=== PATIENT | female | born 1955 | race American Indian/Alaskan Native ===

== ENCOUNTER 2017-10-25 07:39 | Inpatient (IN) | payer MEDICARE ==
[2017-10-25 08:29] LABS: Mean Corpuscular HGB Conc 29 % (30-34); Mean Corpuscular Volume 79 fl (79-97); Platelet Count 335 K/mm3 (140-440); Red Blood Count 3.75 M/mm3 (3.65-5.03)
[2017-10-25 08:32] LABS: Hematocrit 29.6 % (30.3-42.9); Hemoglobin 8.5 gm/dl (10.1-14.3); Mean Corpuscular Hemoglobin 23 pg (28-32); Red Cell Distribution Width 26.1 % (13.2-15.2)
[2017-10-25 08:39] LABS: BUN/Creatinine Ratio 40; Blood Urea Nitrogen 16 mg/dL (7-17); Calcium 8.9 mg/dL (8.4-10.2); Hemolysis Index 1
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
[2017-10-25 09:10] LABS: Anisocytosis 3+; Basophils % (Manual) 0 % (0.0-1.8); Eosinophils % (Manual) 0 % (0.0-4.3); Hypochromasia 1+; Poikilocytosis 2+; Total Cells Counted 100
[2017-10-25 09:11] LABS: Large Platelets Few; Ovalocytes 1+; Platelet Estimate Cons; Stomatocytes 1+
[2017-10-25] MEDS ORDERED: BOOSTRIX IM ONE (09:47)
[2017-10-25] MEDS ORDERED: SUBLIMAZE IV ONE (09:47)
[2017-10-25] MEDS ORDERED: LASIX IV ONE (09:47)
[2017-10-25] MEDS ORDERED: ANCEF/NS 1 GM/50 ML 1 GM/50 ML BAG IV ONE (09:47)
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
[2017-10-25 10:26] LABS: INR 1.04 (0.87-1.13)
[2017-10-25 10:27] LABS: Partial Thromboplastin Time 30.6 Sec. (24.2-36.6)
[2017-10-25] MEDS ORDERED: MAGNESIUM SULFATE 2GM/50ML 2 GM/50 ML BAG IV ONE (10:57)
[2017-10-25] MEDS ORDERED: GEODON IM ONE ×2 (11:05→11:09)
[2017-10-25] MEDS ORDERED: MAGNESIUM SULFATE 1 GM in NACL 0.9% 50 ML IV ONE (11:30)
[2017-10-25] MEDS: HALDOL IM PRN ×2 (11:44→17:50)
[2017-10-25] MEDS: ATIVAN IM PRN ×2 (11:44→15:51)
[2017-10-25] MEDS ORDERED: MAGNESIUM SULFATE 2 GM in NACL 0.9% 50 ML IV ONE (12:00)
[2017-10-25] MEDS ORDERED: NACL 0.9% IR ONE (12:02)
[2017-10-25 13:11] LABS: Bilirubin,Urine NEG (Negative); Blood,Urine NEG (Negative); Color,Urine Colorless (Yellow); Hyaline Casts,Urine 1 /LPF; Mucus,Urine FEW /HPF; Protein,Urine <15 mg/dL mg/dL (Negative); Urobilinogen,Urine < 2.0 mg/dL (<2.0)
[2017-10-25 13:18] LABS: RBC,Urine < 1.0 /HPF (0.0-6.0); WBC,Urine < 1.0 /HPF (0.0-6.0)
[2017-10-25 13:27] LABS: Amphetamine Screen,Urine PRESUMPTIVE NEGATIVE; Benzodiazepines Screen,Urine PRESUMPTIVE NEGATIVE; Cannabinoid Screen,Urine PRESUMPTIVE NEGATIVE; Cocaine Screen,Urine PRESUMPTIVE NEGATIVE; Methadone Screen,Urine PRESUMPTIVE NEGATIVE; Opiate Screen,Urine PRESUMPTIVE NEGATIVE
--- NOTE | 2017-10-25 14:09 | Cat Scan Report ---
FINAL REPORT EXAM: CT HEAD/BRAIN WO CON HISTORY: ams TECHNIQUE: CT of the head was performed. No intravenous contrast was administered. PRIORS: None. FINDINGS: There is mild ischemic change in the white matter. There is no evidence of intracranial hemorrhage. There is no edema, mass effect or midline shift. There are no abnormal extra-axial fluid collections. The ventricles are appropriate for brain volume. There is no skull fracture seen. The visualized aspects of the sinuses are clear. IMPRESSION: There is no acute intracranial abnormality identified.
--- NOTE | 2017-10-25 14:15 | Cat Scan Report ---
FINAL REPORT EXAM: CT ANGIO CHEST HISTORY: dyspnea TECHNIQUE: CT angiography of the chest was performed. 100 cc Omnipaque 350 IV was administered. Axial images and coronal and sagittal reformatted images were obtained. Rotational MIPS reformatted images also obtained. PRIORS: None. FINDINGS: There is a large mass in the right upper lobe measuring 4.5 x 4.3 cm. This is very concerning for malignancy. There is some adjacent pleural thickening. There are additional pulmonary nodules bilaterally. The largest is left upper lobe measuring 11 mm. These are likely metastatic nodules. There is no aortic dissection seen. There are no filling defects seen within the pulmonary arterial circulation to suggest pulmonary embolism. There are coronary artery atherosclerotic calcifications. There is a small pericardial effusion. There is no significant mediastinal or hilar mass seen. There is trace right pleural fluid. There is generalized edema. IMPRESSION: There is a 4.5 x 4.3 cm right upper lobe mass which is consistent with malignancy. Multiple small bilateral pulmonary nodules also seen which likely represent metastatic disease. Small pericardial effusion. Trace right pleural effusion. There is no pulmonary embolism or aortic dissection seen. Generalized edema.
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
[2017-10-25] MEDS ORDERED: MORPHINE IV PRN (17:00)
[2017-10-25] MEDS ORDERED: TYLENOL PO PRN (17:00)
[2017-10-25] MEDS ORDERED: SODIUM CHLORIDE FLUSH SYRINGE 10 ML IV PRN (17:00)
[2017-10-25] MEDS ORDERED: PROVENTIL IH PRN (17:00)
[2017-10-25] MEDS ORDERED: ZOFRAN IV PRN (17:00)
[2017-10-25] MEDS: ZITHROMAX 500 MG in NACL 0.9% 250ML 250 ML IV SCH (18:23)
[2017-10-26] MEDS: LOPRESSOR PO SCH ×3 (00:11→22:29)
[2017-10-26] MEDS: SODIUM CHLORIDE FLUSH SYRINGE 10 ML IV SCH ×3 (00:29→22:28)
[2017-10-26] MEDS: ROCEPHIN/NS 1 GM/50 ML 1 GM/50 ML BAG IV SCH ×2 (00:29→17:59)
[2017-10-26] MEDS: HALDOL IM PRN (01:10)
[2017-10-26] MEDS: K-DUR PO SCH (11:15)
[2017-10-26] MEDS: BABY ASPIRIN PO SCH (11:15)
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
[2017-10-26 13:38] LABS: Hematocrit 26.8 % (30.3-42.9); Hemoglobin 7.9 gm/dl (10.1-14.3)
[2017-10-26 13:56] LABS: BUN/Creatinine Ratio 45; Blood Urea Nitrogen 18 mg/dL (7-17); Calcium 8.8 mg/dL (8.4-10.2); Hemolysis Index 1
--- NOTE | 2017-10-26 17:55 | Magnetic Resonance Report ---
FINAL REPORT EXAM: MR BRAIN WO CON HISTORY: metastatic disease Chest CT reveals right upper lobe mass and pulmonary nodules TECHNIQUE: Multiplanar multisequence brain MR imaging without IV contrast. PRIORS: Chest CT 10/25/2017 FINDINGS: The included air filled sinuses contain no acute fluid level. Foci of hyperintensity in the cerebral white matter, while nonspecific, are present and usually attributed to chronic ischemic gliosis. It can occur secondary to the normal aging process, hypertension, vasculitis, migraine related changes, or arterial sclerotic vascular disease. The differential includes any cause of gliosis as well as demyelination in the appropriate clinical setting. There is ventricular and sulcal prominence compatible with global symmetric cerebrocortical atrophy. The brain is without mass, mass effect, hemorrhage, or acute infarct. There are no areas of brain restricted diffusion to suggest an acute ischemic infarct. There is no midline shift or brain edema. Lack of IV contrast limits the examination for metastatic evaluation. IMPRESSION: No acute CVA or brain mass Lack of IV contrast limits the examination for evaluation of metastatic foci. Consider followup with IV contrast in the appropriate clinical setting
[2017-10-26] MEDS: PERCOCET 5/325 PO PRN (21:10)
[2017-10-26] MEDS: PROTONIX IV SCH (22:29)
[2017-10-26] MEDS: ZITHROMAX 500 MG in NACL 0.9% 250ML 250 ML IV SCH (22:46)
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
[2017-10-27] MEDS: PERCOCET 5/325 PO PRN ×2 (03:33→21:45)
--- NOTE | 2017-10-27 07:43 | Cat Scan Report ---
FINAL REPORT EXAM: CT ABDOMEN PELVIS WO CON HISTORY: metastatic disease TECHNIQUE: CT examination of the ABDOMEN without IV contrast CT examination of the PELVIS without IV contrast PRIORS: Chest CT 10/25/2017 FINDINGS: Posterior layering right pleural effusion is now large. New large left pleural effusion. Adjacent lower lobe consolidation may reflect compressive atelectasis and/or pneumonia bilaterally. Slight pericardial effusion unchanged. Lung nodules not visible in the included portion of both lung bases. Degenerative change in the regional skeleton. No evidence of acute fracture or focal osseous lesion. No vertebral compression. New fat stranding throughout the abdominal wall and mesentery suggestive of edema related to anasarca. New slight abdominal and pelvic ascites. Normal noncontrast appearance of the liver, gallbladder, adrenals, pancreas, and spleen. Aortobifemoral graft in place. Nonspecific heterogeneous soft tissue density mass in the right inguinal fossa may be hematoma, reactive adenopathy, or neoplasm. It is noted adjacent to the distal tip of the right femoral artery graft. Normal caliber IVC. Severe atherosclerotic calcification in the [place] aorta and its branches. Nonspecific multifocal areas of cortical hypoenhancement in each kidney. This may reflect nonspecific under perfusion. Differential includes multiple areas of ischemia, infarct, edema, infection, or inflammation. No visible renal calculus or hydronephrosis. Bilaterally symmetric renal excretion. Both ureters obscured by adjacent anatomy and mesenteric edema. No retroperitoneal adenopathy or mesenteric mass. Normal-appearing stomach and duodenum. Nonspecific scattered slight small bowel distention in the abdomen and pelvis with prominent gas and fluid levels may reflect paralytic ileus. No definite obstructive pattern. Moderate pelvic ascites. Ascites and mesenteric edema, as well as lack of oral contrast, limits intestinal evaluation. No visible rectal or sigmoid abnormality. No evidence of free air. Nonspecific mural thickening is diffuse throughout the ascending colon. Normal-appearing terminal ileum. Appendix not visualized. IMPRESSION: Large bilateral pleural effusions with adjacent lower lobe atelectasis and/or pneumonia. Prior exam only showed trace right pleural effusion Slight pericardial effusion is unchanged. Lung nodules visible on comparison exam not included in this field of view New fat stranding throughout the abdominal wall and mesentery suggestive of edema related anasarca New abdominal and pelvic ascites Aortobifemoral graft in place. Right inguinal mass adjacent to the right femoral anastomosis may be a hematoma in the right inguinal fossa. Differential includes reactive adenopathy, neoplasm, or metastasis Nonspecific multifocal areas of cortical hypoenhancement in each kidney may be related to nonspecific under perfusion with IV contrast. Differential includes multiple areas of ischemia, infarct, edema, infection, or inflammation Scattered slight small bowel distention in the abdomen and pelvis, with prominent gas and fluid levels, may reflect paralytic ileus Diffuse mural thickening in the ascending colon may be from edema, inflammation, infection, ischemia, or inflammatory bowel disease. Neoplastic infiltration considered less likely given long length of involvement
[2017-10-27 08:35] LABS: Mean Corpuscular HGB Conc 28 % (30-34); Mean Corpuscular Volume 82 fl (79-97); Platelet Count 318 K/mm3 (140-440); Red Blood Count 3.29 M/mm3 (3.65-5.03)
[2017-10-27 08:48] LABS: Hemoglobin 7.5 gm/dl (10.1-14.3); Mean Corpuscular Hemoglobin 23 pg (28-32); Red Cell Distribution Width 26.5 % (13.2-15.2)
[2017-10-27 08:57] LABS: BUN/Creatinine Ratio 38; Blood Urea Nitrogen 23 mg/dL (7-17); Calcium 8.8 mg/dL (8.4-10.2); Hemolysis Index 15
--- NOTE | 2017-10-27 09:53 | Consultation ---
History of Present Illness Consult date: 10/27/17 Requesting physician: AMADOR VELASQUEZ Reason for consult: lung mass History of present illness: 61 y/o female with right upper lobe lung mass. Consulted by [facility]MS for possible biopsy. Patient has known about this mass since Apr of this year. It has been biopsied and she was to undergo chemo today. She is [place] patient and the biopsy was performed at [facility] [place]. Patient admitted with confusion which appears to be better. Past History Past Medical History: cancer, COPD, heart failure, hypertension Past Surgical History: Other (Port placement) Social history: smoking Family history: hypertension Medications and Allergies Allergies Allergy/AdvReac Type Severity Reaction Status Date / Time No Known Allergies Allergy Verified 10/18/17 21:48 Home Medications Medication Instructions Recorded Confirmed Last Taken Type ALBUTEROL NEB's [Proventil 0.083% 2.5 mg IH Q4HRT PRN #30 nebu 10/22/17 Unknown Rx NEBS] Aspirin [Aspirin BABY CHEW TAB] 81 mg PO QDAY #30 tab.chew 10/22/17 10/25/17 Unknown Rx AtorvaSTATin [Lipitor] 40 mg PO QHS #30 tablet 10/22/17 10/25/17 Unknown Rx Furosemide [Lasix] 20 mg PO QDAY #30 tablet 10/22/17 10/25/17 Unknown Rx Levofloxacin [Levaquin TAB] 750 mg PO DAILY #4 tablet 10/22/17 10/25/17 Unknown Rx Metoprolol [Lopressor TAB] 25 mg PO BID #60 tablet 10/22/17 10/25/17 Unknown Rx Potassium Chloride [K-Dur] 5 meq PO QDAY #14 tablet 10/22/17 10/25/17 Unknown Rx oxyCODONE /ACETAMINOPHEN [Percocet 2 tab PO Q6H PRN #30 tablet 10/22/17 Unknown Rx 5/325 mg] Active Meds: Active Medications Acetaminophen (Tylenol) 650 mg PO Q4H PRN PRN Reason: Pain MILD(1-3)/Fever >100.5/OLMOS Albuterol (Proventil) 2.5 mg IH Q4HRT PRN PRN Reason: Shortness Of Breath Last Admin: 10/25/17 21:34 Dose: 2.5 mg Aspirin (Baby Aspirin) 81 mg PO QDAY DONALD Last Admin: 10/26/17 11:15 Dose: Not Given Atorvastatin Calcium (Lipitor) 40 mg PO QHS [facility] Last Admin: 10/26/17 22:29 Dose: 40 mg Haloperidol Lactate (Haldol) 5 mg IM Q6HR PRN PRN Reason: Agitation Last Admin: 10/26/17 01:10 Dose: 5 mg Azithromycin 500 mg/ Sodium (Chloride) 250 mls @ 250 mls/hr IV Q24HR [facility]; Protocol Last Admin: 10/26/17 22:46 Dose: 250 mls/hr Ceftriaxone Sodium (Rocephin/Ns 1 Gm/50 Ml) 1 gm in 50 mls @ 100 mls/hr IV Q24HR [facility]; Protocol Last Admin: 10/26/17 17:59 Dose: 100 mls/hr Lorazepam (Ativan) 2 mg IM Q4HR PRN PRN Reason: Agitation Last Admin: 10/25/17 15:51 Dose: 2 mg Metoprolol Tartrate (Lopressor) 25 mg PO BID [facility] Last Admin: 10/26/17 22:29 Dose: 25 mg Morphine Sulfate (Morphine) 2 mg IV Q4H PRN PRN Reason: Pain, Moderate (4-6) Ondansetron HCl (Zofran) 4 mg IV Q8H PRN PRN Reason: Nausea And Vomiting Oxycodone/Acetaminophen (Percocet 5/325) 2 tab PO Q6H PRN PRN Reason: Pain, Moderate (4-6) Last Admin: 10/27/17 03:33 Dose: 2 tab Pantoprazole Sodium (Protonix) 40 mg IV QDAY [facility] Last Admin: 10/26/17 22:29 Dose: 40 mg Potassium Chloride (K-Dur) 5 meq PO QDAY [facility] Last Admin: 10/26/17 11:15 Dose: Not Given Sodium Chloride (Sodium Chloride Flush Syringe 10 Ml) 10 ml IV BID [facility] Last Admin: 10/26/17 22:28 Dose: 10 ml Sodium Chloride (Sodium Chloride Flush Syringe 10 Ml) 10 ml IV PRN PRN PRN Reason: LINE FLUSH Review of Systems All systems: negative Physical Examination Vital signs: Vital Signs Temp Pulse Resp BP Pulse Ox 98 F 82 20 132/80 98 10/25/17 07:59 10/25/17 07:59 10/25/17 07:59 10/25/17 07:59 10/25/17 07:59 General appearance: no acute distress, alert Eyes: non-icteric ENT: oropharynx moist Neck: supple Effort: normal Ascultation: Bilateral: diminished breath sounds Percussion: Bilateral: not dull Tactile fremitus: Bilateral: normal Gastrointestinal: soft Results - Laboratory Findings CBC and BMP: 10/27/17 07:05 10/27/17 07:05 ABG POC ABG pH 7.385 (7.35-7.45) 10/25/17 12:40 POC ABG pCO2 87.9 (35-45) H 10/25/17 12:40 POC ABG pO2 186 (80-105) H 10/25/17 12:40 POC ABG HCO3 52.6 10/25/17 12:40 POC ABG Total CO2 > 50 10/25/17 12:40 POC ABG O2 Sat 100 10/25/17 12:40 PT/INR, D-dimer PT 14.1 Sec. (12.2-14.9) 10/25/17 09:52 INR 1.04 (0.87-1.13) 10/25/17 09:52 Abnormal lab findings: Abnormal Labs 10/25/17 10/25/17 10/25/17 08:14 08:14 08:14 WBC 13.4 H RBC Hgb 8.5 L Hct 29.6 L MCH 23 L MCHC 29 L RDW 26.1 H Seg Neuts % (Manual) 94.0 H Lymphocytes % (Manual) 2.0 L Seg Neutrophils # Man 12.6 H Lymphocytes # (Manual) 0.3 L POC ABG pCO2 POC ABG pO2 Sodium Chloride 91.6 L Carbon Dioxide 43 H* BUN Creatinine 0.4 L Glucose 103 H Magnesium 1.50 L NT-Pro-B Natriuret Pep 2932 H Salicylates Acetaminophen 10/25/17 10/25/17 10/25/17 11:16 11:16 12:40 WBC RBC Hgb Hct MCH MCHC RDW Seg Neuts % (Manual) Lymphocytes % (Manual) Seg Neutrophils # Man Lymphocytes # (Manual) POC ABG pCO2 87.9 H POC ABG pO2 186 H Sodium Chloride Carbon Dioxide BUN Creatinine Glucose Magnesium NT-Pro-B Natriuret Pep Salicylates < 0.3 L Acetaminophen < 5.0 L 10/26/17 10/26/17 10/27/17 10:27 10:27 07:05 WBC RBC 3.29 L Hgb 7.9 L 7.5 L Hct 26.8 L 27.0 L MCH 23 L MCHC 28 L RDW 26.5 H Seg Neuts % (Manual) Lymphocytes % (Manual) Seg Neutrophils # Man Lymphocytes # (Manual) POC ABG pCO2 POC ABG pO2 Sodium 147 H Chloride 94.5 L Carbon Dioxide 43 H* BUN 18 H Creatinine 0.4 L Glucose 45 L Magnesium NT-Pro-B Natriuret Pep Salicylates Acetaminophen 10/27/17 07:05 WBC RBC Hgb Hct MCH MCHC RDW Seg Neuts % (Manual) Lymphocytes % (Manual) Seg Neutrophils # Man Lymphocytes # (Manual) POC ABG pCO2 POC ABG pO2 Sodium 148 H Chloride 96.9 L Carbon Dioxide 38 H BUN 23 H Creatinine 0.6 L Glucose Magnesium NT-Pro-B Natriuret Pep Salicylates Acetaminophen - Diagnostic Findings Chest x-ray: image reviewed Assessment and Plan 61 y/o female with RUL lung mass, known CA, type not known to us. 1. Will sign off at this point 2. Suggest obtaining [place] and [facility] records if needed to further process 3. Confusion could be related to CA if mets to brain however head CT is negative. 4. Primary to correct electrolytes. Thank you for this consult
[2017-10-27 10:33] LABS: Basophils % (Manual) 0 % (0.0-1.8); Total Cells Counted 100
[2017-10-27 10:34] LABS: Anisocytosis 3+; Hypochromasia 2+; Ovalocytes 1+; Poikilocytosis 2+; Tear Drop Cells Few
[2017-10-27 10:35] LABS: Large Platelets Few; Platelet Estimate Cons; Stomatocytes Few; Target Cells Rare
[2017-10-27] MEDS: BABY ASPIRIN PO SCH (10:53)
[2017-10-27] MEDS: K-DUR PO SCH (10:53)
[2017-10-27] MEDS: LOPRESSOR PO SCH ×2 (10:53→21:43)
[2017-10-27] MEDS: SODIUM CHLORIDE FLUSH SYRINGE 10 ML IV SCH ×2 (10:54→21:46)
[2017-10-27] MEDS: PROTONIX IV SCH (10:54)
[2017-10-27] MEDS: ZITHROMAX 500 MG in NACL 0.9% 250ML 250 ML IV SCH (10:57)
--- NOTE | 2017-10-27 11:34 | Gastroenterology Progress Note ---
<FELICITA ROBLES - Last Filed: 10/27/17 11:44> Assessment and Plan 1.GI bleed 2.anemia 3.respiratory failure 4.CHF 5.foreign body in foot 6.encephalopathy 7.psychosis 8.lung cancer (stage 3) 9.nicotine dependence -H/H 7.5-trending down -continue to monitor H/H and transfuse as needed -hold blood thinning medications -stool occult positive -no active signs of bleeding -etiology unclear- possibly 2/2 lung CA/chemotherapy vs other -clinically, patient is stable w/o GI complaints -Head CT negative -Abd CT results reviewed- will discuss findings with Dr. Villegas with further recommendations (possible endoscopic evaluation?) to follow -continue PPI and supportive care -will follow Subjective Date of service: 10/27/17 Principal diagnosis: anemia Interval history: Patient w/o distress. Denies abd pain, N/V, or signs of bleeding. Objective - Constitutional Vitals: Temp Pulse Resp BP Pulse Ox 98.1 F 107 H 19 113/64 100 10/26/17 19:44 10/26/17 22:34 10/26/17 22:34 10/26/17 19:44 10/26/17 22:34 General appearance: no acute distress, cachectic - Respiratory Respiratory: bilateral: CTA (anterior) - Cardiovascular Rhythm: regular Heart Sounds: Present: S1 & S2 - Gastrointestinal General gastrointestinal: Present: soft, non-tender, non-distended, normal bowel sounds - Labs CBC & Chem 7: 10/27/17 07:05 10/27/17 07:05 Labs: Laboratory Results - last 24 hr 10/26/17 10/26/17 10/27/17 10:27 10:27 07:05 WBC 10.6 RBC 3.29 L Hgb 7.9 L 7.5 L Hct 26.8 L 27.0 L MCV 82 MCH 23 L MCHC 28 L RDW 26.5 H Plt Count 318 Add Manual Diff Complete Total Counted 100 Seg Neuts % (Manual) 72.0 H Band Neutrophils % 0 Lymphocytes % (Manual) 13.0 L Reactive Lymphs % (Man) 0 Monocytes % (Manual) 14.0 H Eosinophils % (Manual) 1.0 Basophils % (Manual) 0 Metamyelocytes % 0 Myelocytes % 0 Promyelocytes % 0 Blast Cells % 0 Nucleated RBC % Not Reportable Seg Neutrophils # Man 7.6 Band Neutrophils # 0.0 Lymphocytes # (Manual) 1.4 Abs React Lymphs (Man) 0.0 Monocytes # (Manual) 1.5 H Eosinophils # (Manual) 0.1 Basophils # (Manual) 0.0 Metamyelocytes # 0.0 Myelocytes # 0.0 Promyelocytes # 0.0 Blast Cells # 0.0 WBC Morphology Not Reportable Hypersegmented Neuts Not Reportable Hyposegmented Neuts Not Reportable Hypogranular Neuts Not Reportable Smudge Cells Not Reportable Toxic Granulation Not Reportable Toxic Vacuolation Not Reportable Dohle Bodies Not Reportable Pelger-Huet Anomaly Not Reportable Ani Rods Not Reportable Platelet Estimate Cons Clumped Platelets Not Reportable Plt Clumps, EDTA Not Reportable Large Platelets Few Giant Platelets Not Reportable Platelet Satelliting Not Reportable Plt Morphology Comment Not Reportable RBC Morphology Not Reportable Dimorphic RBCs Not Reportable Polychromasia Not Reportable Hypochromasia 2+ Poikilocytosis 2+ Anisocytosis 3+ Microcytosis Not Reportable Macrocytosis Not Reportable Spherocytes Not Reportable Pappenheimer Bodies Not Reportable Sickle Cells Not Reportable Target Cells Rare Tear Drop Cells Few Ovalocytes 1+ Stomatocytes Few Helmet Cells Not Reportable Varela-[place] Bodies Not Reportable [place] Rings Not Reportable [place] Cells Not Reportable Bite Cells Not Reportable Crenated Cell Not Reportable Elliptocytes Few Acanthocytes (Spur) Not Reportable Rouleaux Not Reportable Hemoglobin C Crystals Not Reportable Schistocytes Not Reportable Malaria parasites Not Reportable [place] Bodies Not Reportable Hem Pathologist Commnt No Sodium 147 H Potassium 3.7 Chloride 94.5 L Carbon Dioxide 43 H* Anion Gap 13 BUN 18 H Creatinine 0.4 L Estimated GFR > 60 BUN/Creatinine Ratio 45 Glucose 45 L Calcium 8.8 Ferritin 10/27/17 10/27/17 07:05 07:05 WBC RBC Hgb Hct MCV MCH MCHC RDW Plt Count Add Manual Diff Total Counted Seg Neuts % (Manual) Band Neutrophils % Lymphocytes % (Manual) Reactive Lymphs % (Man) Monocytes % (Manual) Eosinophils % (Manual) Basophils % (Manual) Metamyelocytes % Myelocytes % Promyelocytes % Blast Cells % Nucleated RBC % Seg Neutrophils # Man Band Neutrophils # Lymphocytes # (Manual) Abs React Lymphs (Man) Monocytes # (Manual) Eosinophils # (Manual) Basophils # (Manual) Metamyelocytes # Myelocytes # Promyelocytes # Blast Cells # WBC Morphology Hypersegmented Neuts Hyposegmented Neuts Hypogranular Neuts Smudge Cells Toxic Granulation Toxic Vacuolation Dohle Bodies Pelger-Huet Anomaly Ani Rods Platelet Estimate Clumped Platelets Plt Clumps, EDTA Large Platelets Giant Platelets Platelet Satelliting Plt Morphology Comment RBC Morphology Dimorphic RBCs Polychromasia Hypochromasia Poikilocytosis Anisocytosis Microcytosis Macrocytosis Spherocytes Pappenheimer Bodies Sickle Cells Target Cells Tear Drop Cells Ovalocytes Stomatocytes Helmet Cells Varela-[place] Bodies [place] Rings Jenna Cells Bite Cells Crenated Cell Elliptocytes Acanthocytes (Spur) Rouleaux Hemoglobin C Crystals Schistocytes Malaria parasites Warren Bodies Hem Pathologist Commnt Sodium 148 H Potassium 3.7 Chloride 96.9 L Carbon Dioxide 38 H Anion Gap 17 BUN 23 H Creatinine 0.6 L Estimated GFR > 60 BUN/Creatinine Ratio 38 Glucose 82 Calcium 8.8 Ferritin 38.0 <CORTES VILLEGAS R - Last Filed: 10/27/17 15:53> Assessment and Plan Pt denies complaints. No nuno GI bleed. Wants to go home. CT findings nonspecific as regards colon. Anemia multifactorial and likely related to neoplasm, etc. Uncertain as to contribution of GI blood loss. Rec - empiric PPI - okay to D/C with f/u this week with [facility] (pt states she has appt tomorrow) Will sign off. Discussed with Dr. Rider. Objective - Constitutional Vitals: Temp Pulse Resp BP Pulse Ox 98.1 F 107 H 19 113/64 100 10/26/17 19:44 10/26/17 22:34 10/26/17 22:34 10/26/17 19:44 10/26/17 22:34 - Labs CBC & Chem 7: 10/27/17 07:05 10/27/17 07:05 Labs: Laboratory Results - last 24 hr 10/27/17 10/27/17 10/27/17 07:05 07:05 07:05 WBC 10.6 RBC 3.29 L Hgb 7.5 L Hct 27.0 L MCV 82 MCH 23 L MCHC 28 L RDW 26.5 H Plt Count 318 Add Manual Diff Complete Total Counted 100 Seg Neuts % (Manual) 72.0 H Band Neutrophils % 0 Lymphocytes % (Manual) 13.0 L Reactive Lymphs % (Man) 0 Monocytes % (Manual) 14.0 H Eosinophils % (Manual) 1.0 Basophils % (Manual) 0 Metamyelocytes % 0 Myelocytes % 0 Promyelocytes % 0 Blast Cells % 0 Nucleated RBC % Not Reportable Seg Neutrophils # Man 7.6 Band Neutrophils # 0.0 Lymphocytes # (Manual) 1.4 Abs React Lymphs (Man) 0.0 Monocytes # (Manual) 1.5 H Eosinophils # (Manual) 0.1 Basophils # (Manual) 0.0 Metamyelocytes # 0.0 Myelocytes # 0.0 Promyelocytes # 0.0 Blast Cells # 0.0 WBC Morphology Not Reportable Hypersegmented Neuts Not Reportable Hyposegmented Neuts Not Reportable Hypogranular Neuts Not Reportable Smudge Cells Not Reportable Toxic Granulation Not Reportable Toxic Vacuolation Not Reportable Dohle Bodies Not Reportable Pelger-Huet Anomaly Not Reportable Ani Rods Not Reportable Platelet Estimate Cons Clumped Platelets Not Reportable Plt Clumps, EDTA Not Reportable Large Platelets Few Giant Platelets Not Reportable Platelet Satelliting Not Reportable Plt Morphology Comment Not Reportable RBC Morphology Not Reportable Dimorphic RBCs Not Reportable Polychromasia Not Reportable Hypochromasia 2+ Poikilocytosis 2+ Anisocytosis 3+ Microcytosis Not Reportable Macrocytosis Not Reportable Spherocytes Not Reportable Pappenheimer Bodies Not Reportable Sickle Cells Not Reportable Target Cells Rare Tear Drop Cells Few Ovalocytes 1+ Stomatocytes Few Helmet Cells Not Reportable Varela-Landusky Bodies Not Reportable [place] Rings Not Reportable Jenna Cells Not Reportable Bite Cells Not Reportable Crenated Cell Not Reportable Elliptocytes Few Acanthocytes (Spur) Not Reportable Rouleaux Not Reportable Hemoglobin C Crystals Not Reportable Schistocytes Not Reportable Malaria parasites Not Reportable Warren Bodies Not Reportable Hem Pathologist Commnt No Sodium 148 H Potassium 3.7 Chloride 96.9 L Carbon Dioxide 38 H Anion Gap 17 BUN 23 H Creatinine 0.6 L Estimated GFR > 60 BUN/Creatinine Ratio 38 Glucose 82 Calcium 8.8 Ferritin 38.0
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
[2017-10-27] MEDS: ATIVAN IM PRN (21:44)
[2017-10-27] MEDS: ROCEPHIN/NS 1 GM/50 ML 1 GM/50 ML BAG IV SCH (23:02)
[2017-10-28 06:56] LABS: BUN/Creatinine Ratio 55; Blood Urea Nitrogen 22 mg/dL (7-17); Calcium 8.6 mg/dL (8.4-10.2); Hemolysis Index 5
[2017-10-28 07:09] LABS: Mean Corpuscular HGB Conc 29 % (30-34); Mean Corpuscular Volume 82 fl (79-97); Platelet Count 320 K/mm3 (140-440); Red Blood Count 3.11 M/mm3 (3.65-5.03)
[2017-10-28 07:14] LABS: Hematocrit 25.5 % (30.3-42.9); Hemoglobin 7.3 gm/dl (10.1-14.3); Mean Corpuscular Hemoglobin 23 pg (28-32); Red Cell Distribution Width 25.7 % (13.2-15.2)
--- NOTE | 2017-10-28 09:15 | Query-Infection ---
Dear Date:__10/28/2017 Reinstatement Clerk/CDS:__Sushma/Jennifer Phone#:__[phone] Exercise your independent professional judgment when responding to this query. Questions asked do not imply a particular answer is desired or expected. We greatly appreciate your clarification on this issue. Clinical Documentation States: 61 Year old female was admitted on 10/25/2017 for shortness of breath for the past 3 days with worsening symptoms over the past 1 day. Pt has become increasingly confused and agitated with abnormal behavior. The Hospitalist (Dr. Rider) progress note on 10/27/2017 stated "(1) Respiratory failure with hypoxia likely secondary to pleural effusion * Likely secondary to pleural effusion now resolved. Pleural effusion likely malignant considering lung cancer. (4) Encephalopathy Current Visit: Yes Status: Acute Plan to address problem: CT Head, neuro checks, neuro checks, supportive care. Results pending psychiatry evaluation." Clinical findings show: (please check applicable parameters) WBC (10/25): 13.4 SD (10/25): 128 RR (10/25): 37 Infection, known /suspected, with some of the following indicators; Specify the infection: 3 General parameters [ ] Fever (core temp >38.30C or 100.40F) [ ] Hypothermia (core temp <36C) [X] Heart rate >90 bpm [X] Tachypnea: >20 bpm or pCO2 < 32 mmHg [X] Altered mental status [ ] Significant edema / +ve fluid balance (>20 ml/kg 24 h) [ ] Hyperglycemia (Bl. glucose >110 mg/dl) w/o diabetes Inflammatory parameters [X] Leukocytosis (white blood cell count >12,000/l) [ ] Leukopenia (white blood cell count <4,000/l) [ ] Bandemia (immature WBC > 10%) [ ] Leucocyte Left Shift [ ] Plasma procalcitonin>2 SD above the normal value Hemodynamic and tissue perfusion parameters [ ] Arterial hypotension(SBP <90 mmHg, MAP <70 mmHg,or a SBP drop >40 mmHg in adults) [ ] Hyperlactatemia (>3 mmol/l) [ ] Anion Gap (> 11mEG/l) [ ] Decreased capillary refill or mottling Organ dysfunction parameters [ ] Arterial hypoxemia (PaO2/FIO2 <300) [ ] Creatinine increase =0.5 mg/dl [ ] Acute oliguria (urine output <0.5 ml | kg |h or 45 mM/l for at least 2 hrs) [ ] Coagulation abnormalities (INR >1.5 or activated partial thromboplastin time >60 s) [ ] Ileus (absent suzanne wel sounds) [ ] Thrombocytopenia (platelet count <100,000/l) [ ] Hyperbilirubinemia (plasma total bilirubin >4 mg/dl) According to the clinical indications above, can Bacteremia be further specified? If so, please indicate below and in your Progress Notes and/ or Discharge Summary. Indicate if the condition was present on admission. PHYSICIAN RESPONSE: [ ] Sepsis [ ] Severe Sepsis [ ] Septic Shock [ ] Septicemia [ ] Sepsis now resolved [ x] SIRS due to non-infectious cause with organ dysfunction [ ] SIRS due to non-infectious cause without organ dysfunction [ ] Other: [ ] Comment/Explanation: Present on Admission: x ] Yes (Y) [ ] Clinically undeterminable (W) [ ] No ( N) [ ] Ruled Out Please also document response in your Progress Notes and/or Discharge Summary and indicate if the condition was present on admission Notes: SIRS/ SIRS WITH ORGAN DYSFUNCTION Systemic inflammatory response syndrome (SIRS) generally refers to the systemic response to trauma/mejias or other insult such as Acute Myocardial Infarction, Acute Pancreatitis, and Major Surgery with symptoms including fever, tachycardia , tachypnea, and leukocytosis (1). BACTEREMIA Presence of viable bacteria in the circulating blood (2). This term is reserved for patients that do not manifest above SIRS response. SEPTICEMIA Generally refers to a systemic disease associated with the presence of pathological microorganisms or toxins in the blood, which can include bacteria, viruses, fungi or other organisms (1). SEPSIS Generally refers to SIRS due infection (1). SEVERE SEPSIS Generally refers to sepsis associated with acute organ dysfunction (1). SEPTIC SHOCK Generally refers to circulatory failure associated with severe sepsis (2), and defined as hypotension or hypoperfusion despite adequate fluid resuscitation (1 hour) (3). REFERENCES: 1. [employer]/Society of Critical Care Medicine Consensus Conference. Definitions for sepsis and organ failure and guidelines for the use of innovative therapies in sepsis. Critical Care Med 1992;20:864 - 74. 2. Hugh kilpatrick MM, Alan MP, Jose DEL CID, Cirilo E, Clive D, Hawk D, Octaviano J, [place] SM , Price JL, Aliya G; International Sepsis Definitions Conference. 2001 SCCM/ESICM/ACCP/ATS/SIS International Sepsis Definitions Conference. Intensive Care Med. 2002 Apr;29(4):530-8. Epub 2002Jun 23. Review. PubMed PMID:[id number] 3. ICD-9-CM Official Guidelines for Coding and Reporting 4. Medscape Drugs, Diseases and Procedures references 5. Harrisjose antonio Textbook of Internal Medicine. 18th Edition MTDD
[2017-10-28] MEDS ORDERED: PROTONIX IV SCH (10:00)
[2017-10-28] MEDS: K-DUR PO SCH (10:35)
[2017-10-28] MEDS: LOPRESSOR PO SCH ×2 (10:35→21:04)
[2017-10-28] MEDS: SODIUM CHLORIDE FLUSH SYRINGE 10 ML IV SCH ×2 (10:36→21:05)
[2017-10-28] MEDS: ZITHROMAX 500 MG in NACL 0.9% 250ML 250 ML IV SCH (11:00)
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
[2017-10-28] MEDS ORDERED: NACL 0.9% 500 ML 500 ML IV NR ×2 (11:30→21:00)
--- NOTE | 2017-10-28 11:38 | Ultrasound Report ---
ULTRASOUND CHEST INDICATION: Pleural effusion, for thoracentesis. COMPARISON: 10/25/2017 chest CTA. FINDINGS: Sonographic survey of right lower chest suggests approximately 111 cc fluid, felt inadequate for safe drainage. CONCLUSION: Inadequate right pleural fluid for safe drainage. Thoracentesis hence not performed. I phoned the above results to Dr. Rider. Thank you for the opportunity to participate in this patient's care.
[2017-10-28] MEDS: ROCEPHIN/NS 1 GM/50 ML 1 GM/50 ML BAG IV SCH (13:55)
--- NOTE | 2017-10-28 15:24 | Progress Note ---
Subjective - Reason for Consult Consult date: 10/28/17 Reason for consult: Psych - Chief Complaint Chief complaint: "I never tried to harm myself" 61 year old female with HTN, COPD, Lung Cancer, Systolic CHF, Dementia, Nicotine Dependence presents to ED for evaluation. Psychiatry was consulted due to psychosis. Patient denies any past psychiatric history. Today the patient is calm and cooperative during the assessment. She is adamant that she didn't try to hurt herself prior to her admission to the hospital. She denies any previous self-injury behavior in the past. She stated that her behavior changed "slightly" when she started taking steroids. She stated that she plan to follow up with her PCP once discharged to discuss her medication regimen. She stated that she is aware and understand what her prognosis maybe ( lung cancer) moving forward. She denies being depressed when asked. She stated that she will talk with her cyber security instructor for spiritual support and therapy. She denies SI/HI's and AVH's. Mental Status Exam - Vital signs Last Vital Signs Temp 98.0 F 10/28/17 11:59 Pulse 108 H 10/28/17 11:59 Resp 20 10/28/17 11:59 BP 105/80 10/28/17 11:59 Pulse Ox 100 10/28/17 11:59 - Exam Narrative exam: MSE: Appearance: calm, cooperative Behavior: regular eye contact Speech: regular rate and tone Mood: okay Affect: congruent to mood Thought Process: linear Thought Content: denies SI/HI's and AVH's Motor Activity: sitting up in bed Cognition: A/O x 3 Insight: appropriate Judgment: appropriate Assessment and Plan Impression: No overt psychosis with this patient. Today the patient is calm and cooperative during the assessment. The patient is no threat to self. Recommendation/Plan: Rescind 1013. The patient can follow up with her PCP for medication reconciliation. The patient stated that she will speak with her cyber security instructor for spiritual support and therapy.
[2017-10-28] MEDS ORDERED: ROCEPHIN/NS 1 GM/50 ML 1 GM/50 ML BAG IV SCH (23:00)
[2017-10-28] MEDS ORDERED: NACL 0.9% 500 ML 500 ML IV ONE (23:39)
[2017-10-29] MEDS ORDERED: PROTONIX PO SCH (10:00)
[2017-10-29] MEDS: LOPRESSOR PO SCH (10:20)
[2017-10-29] MEDS: K-DUR PO SCH (10:20)
[2017-10-29 10:38] LABS: Mean Corpuscular HGB Conc 29 % (30-34); Mean Corpuscular Volume 86 fl (79-97); Platelet Count 316 K/mm3 (140-440); Red Blood Count 3.65 M/mm3 (3.65-5.03)
[2017-10-29 10:43] LABS: Hematocrit 31.4 % (30.3-42.9); Mean Corpuscular Hemoglobin 25 pg (28-32); Red Cell Distribution Width 25.1 % (13.2-15.2)
[2017-10-29 10:56] LABS: BUN/Creatinine Ratio 60; Blood Urea Nitrogen 18 mg/dL (7-17); Calcium 8.5 mg/dL (8.4-10.2); Hemolysis Index 51
[2017-10-29] MEDS: ZITHROMAX 500 MG in NACL 0.9% 250ML 250 ML IV SCH (15:35)
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
[2017-10-29 17:24] VITALS: BP 126/71
[2017-10-30] MEDS ORDERED: ZITHROMAX PO SCH (10:00)
== END 2017-10-29 20:25 | disposition home or self-care (01) | DRG 377 ==
LOC: ED 07:39 → 4A 17:00
PROVIDERS: ADMIT Internal Medicine; ATTEND Internal Medicine
PROC: 5A09457 Assistance with Respiratory Ventilation, 24-96 Consecutive Hours, Continuous Positive Airway Pressure (ICD-10-PCS; 2017-10-25)
PROC: 5A09357 Assistance with Respiratory Ventilation, Less than 24 Consecutive Hours, Continuous Positive Airway Pressure (ICD-10-PCS; 2017-10-28)
PROC: 4A033R1 Measurement of Arterial Saturation, Peripheral, Percutaneous Approach (ICD-10-PCS; 2017-10-28)
PROC: 30233N1 Transfusion of Nonautologous Red Blood Cells into Peripheral Vein, Percutaneous Approach (ICD-10-PCS; principal; 2017-10-29)
DX: K92.2 Gastrointestinal hemorrhage, unspecified (principal); J96.01 Acute respiratory failure with hypoxia; I50.23 Acute on chronic systolic (congestive) heart failure; R65.11 Systemic inflammatory response syndrome (SIRS) of non-infectious origin with acute organ dysfunction; J96.02 Acute respiratory failure with hypercapnia; G93.41 Metabolic encephalopathy; J18.1 Lobar pneumonia, unspecified organism; J44.0 Chronic obstructive pulmonary disease with (acute) lower respiratory infection; E87.2 Acidosis; F17.213 Nicotine dependence, cigarettes, with withdrawal; J91.0 Malignant pleural effusion; C34.90 Malignant neoplasm of unspecified part of unspecified bronchus or lung; I11.0 Hypertensive heart disease with heart failure; F03.90 Unspecified dementia, unspecified severity, without behavioral disturbance, psychotic disturbance, mood disturbance, and anxiety; F29 Unspecified psychosis not due to a substance or known physiological condition; E64.9 Sequelae of unspecified nutritional deficiency; Z82.49 Family history of ischemic heart disease and other diseases of the circulatory system; Z79.82 Long term (current) use of aspirin; Z79.899 Other long term (current) drug therapy; S91.342A Puncture wound with foreign body, left foot, initial encounter; X58.XXXA Exposure to other specified factors, initial encounter; Y93.9 Activity, unspecified; Y92.009 Unspecified place in unspecified non-institutional (private) residence as the place of occurrence of the external cause
CPT/HCPCS: 36415; 36600; 70450; 70551; 71045; 71275; 74178; 76604; 80048; 80307; 80320; 81001; 82271; 82550; 82728; 82803; 83735; 83880; 85007; 85014; 85018; 85025; 85027; 85610; 85730; 86850; 86900; 86901; 86920; 87040; 90715; 93005; 93010; 94640; 94660; 94760; 99406; A9270-GY; C9113; G0480; J0456; J0690; J0696; J1630; J1940; J2060; J3010; J3475; J3486; J7040; J7050; P9016; Q9967

== ENCOUNTER 2017-10-30 21:38 | Inpatient (IN) | payer MEDICARE ==
--- NOTE | 2017-10-30 22:30 | Emergency Department Report ---
ED Shortness of Breath HPI - General Chief Complaint: Dyspnea/Respdistress Stated Complaint: SOB Time Seen by Provider: 10/30/17 22:01 Source: patient, EMS Mode of arrival: Stretcher Limitations: No Limitations - History of Present Illness Initial Comments: She is a 61-year-old female that presents emergency room with complaints of shortness of breath for 2 days. Patient states her shortness of breath is worsening. Patient denies fever chills. Patient denies chest pain. Patient states her shortness of breath is better with rest and oxygen. Patient states that the shortness of breath is worse with exertion. Patient on 2 L O2 for COPD at home. Patient was hypoxic with EMS. Patient was given nebulizer treatment by EMS for wheezing. MD Complaint: shortness of breath, cough -: Sudden - Related Data Previous Rx's Medication Instructions Recorded Last Taken Type ALBUTEROL NEB's [Proventil 0.083% 2.5 mg IH Q4HRT PRN #30 nebu 10/22/17 Unknown Rx NEBS] Aspirin [Aspirin BABY CHEW TAB] 81 mg PO QDAY #30 tab.chew 10/22/17 Unknown Rx AtorvaSTATin [Lipitor] 40 mg PO QHS #30 tablet 10/22/17 Unknown Rx Furosemide [Lasix TAB] 20 mg PO QDAY #30 tablet 10/22/17 Unknown Rx Levofloxacin [Levaquin TAB] 750 mg PO DAILY #4 tablet 10/22/17 Unknown Rx Metoprolol [Lopressor TAB] 25 mg PO BID #60 tablet 10/22/17 Unknown Rx Potassium Chloride [K-Dur] 5 meq PO QDAY #14 tablet 10/22/17 Unknown Rx oxyCODONE /ACETAMINOPHEN [Percocet 2 tab PO Q6H PRN #30 tablet 10/22/17 Unknown Rx 5/325 mg] Allergies Allergy/AdvReac Type Severity Reaction Status Date / Time No Known Allergies Allergy Verified 10/18/17 21:48 ED Review of Systems ROS: Stated complaint: SOB Other details as noted in HPI Constitutional: denies: chills, fever Eyes: denies: eye pain, eye discharge, vision change ENT: denies: ear pain, throat pain Respiratory: cough, shortness of breath. denies: wheezing Cardiovascular: denies: chest pain, palpitations Endocrine: no symptoms reported Gastrointestinal: denies: abdominal pain, nausea, diarrhea Genitourinary: denies: urgency, dysuria, discharge Musculoskeletal: denies: back pain, joint swelling, arthralgia Skin: denies: rash, lesions Neurological: denies: headache, weakness, paresthesias Psychiatric: denies: anxiety, depression Hematological/Lymphatic: denies: easy bleeding, easy bruising ED Past Medical Hx - Past Medical History Previous Medical History?: Yes Hx Hypertension: Yes Hx Congestive Heart Failure: No Hx Diabetes: No Hx of Cancer: Yes (Lung) Hx Asthma: No Hx COPD: Yes - Surgical History Past Surgical History?: Yes Additional Surgical History: port placement for chemo - Family History Family history: hypertension - Social History Smoking Status: Current Every Day Smoker Substance Use Type: Alcohol, Prescribed - Medications Home Medications: Home Medications Medication Instructions Recorded Confirmed Last Taken Type ALBUTEROL NEB's [Proventil 0.083% 2.5 mg IH Q4HRT PRN #30 nebu 10/22/17 Unknown Rx NEBS] Aspirin [Aspirin BABY CHEW TAB] 81 mg PO QDAY #30 tab.chew 10/22/17 10/25/17 Unknown Rx AtorvaSTATin [Lipitor] 40 mg PO QHS #30 tablet 10/22/17 10/25/17 Unknown Rx Furosemide [Lasix TAB] 20 mg PO QDAY #30 tablet 10/22/17 10/25/17 Unknown Rx Levofloxacin [Levaquin TAB] 750 mg PO DAILY #4 tablet 10/22/17 10/25/17 Unknown Rx Metoprolol [Lopressor TAB] 25 mg PO BID #60 tablet 10/22/17 10/25/17 Unknown Rx Potassium Chloride [K-Dur] 5 meq PO QDAY #14 tablet 10/22/17 10/25/17 Unknown Rx oxyCODONE /ACETAMINOPHEN [Percocet 2 tab PO Q6H PRN #30 tablet 10/22/17 Unknown Rx 5/325 mg] ED Physical Exam - General Limitations: No Limitations General appearance: alert, in no apparent distress - Head Head exam: Present: atraumatic, normocephalic - Eye Eye exam: Present: normal appearance - ENT ENT exam: Present: mucous membranes moist - Neck Neck exam: Present: normal inspection - Respiratory Respiratory exam: Present: normal lung sounds bilaterally. Absent: respiratory distress, wheezes, rales - Cardiovascular Cardiovascular Exam: Present: regular rate, normal rhythm. Absent: systolic murmur, diastolic murmur, rubs, gallop - GI/Abdominal GI/Abdominal exam: Present: soft, normal bowel sounds - Extremities Exam Extremities exam: Present: pedal edema (no tenderness to palpation. No calf tenderness. 2+ edema nonpitting) - Back Exam Back exam: Present: normal inspection - Neurological Exam Neurological exam: Present: alert, oriented X3 - Psychiatric Psychiatric exam: Present: normal affect, normal mood - Skin Skin exam: Present: warm, dry, intact, normal color. Absent: rash ED Course Vital Signs 10/30/17 10/30/17 10/30/17 21:55 22:30 23:38 Temperature 98.9 F Pulse Rate 115 H 102 H Respiratory 22 16 16 Rate Blood Pressure 128/75 115/68 Blood Pressure 128/75 [Left] O2 Sat by Pulse 93 94 Oximetry 10/31/17 10/31/17 10/31/17 00:08 00:15 02:15 Temperature Pulse Rate 102 H 104 H Respiratory 18 21 18 Rate Blood Pressure 128/73 Blood Pressure [Left] O2 Sat by Pulse 99 93 Oximetry 10/31/17 10/31/17 10/31/17 04:15 04:30 04:41 Temperature Pulse Rate 110 H 99 H 94 H Respiratory 25 H 25 H 23 Rate Blood Pressure 131/77 124/74 124/74 Blood Pressure [Left] O2 Sat by Pulse 100 99 99 Oximetry 10/31/17 10/31/17 10/31/17 04:51 05:00 05:11 Temperature Pulse Rate 97 H 95 H 97 H Respiratory 22 23 23 Rate Blood Pressure 124/74 129/68 129/68 Blood Pressure [Left] O2 Sat by Pulse 98 98 99 Oximetry - Reevaluation(s) Reevaluation #1: Resting comfortably and satting 98% 10/31/17 00:54 Reevaluation #2: Stress case with [facility] physician, Dr. Lopez. Dr. Lopez stated we will could admit the patient to our hospital. 10/31/17 01:59 Reevaluation #3: Plan of care with patient. Patient agrees to admission and plan of care. We' ll consult hospitalist for admission. 10/31/17 02:06 - Consultations Consultation #1: Hospitalist consulted for admission. Hospitalist agreed to admit. Dr. Yoon to assume care. Full details given to hospitalist 10/31/17 02:06 ED Medical Decision Making - Lab Data Result diagrams: 10/30/17 22:25 10/31/17 06:00 - EKG Data -: EKG Interpreted by Me EKG shows normal: sinus rhythm, axis, intervals, QRS complexes, ST-T waves Rate: tachycardia - Radiology Data Radiology results: report reviewed FINDINGS: There is no evidence of pulmonary embolus or aortic dissection since the previous study. The heart is mildly enlarged. There is a stable small pericardial effusion. Once again there is an exophytic mass in the right upper lobe measuring 4.9 cm x 4 cm x 4 cm compatible malignancy. There is stable scattered nodules in both lungs compatible with metastatic nodules. There is a small right-sided effusion which is increased in size since the previous study. There is now a small left-sided effusion. The lungs are not congested. In the upper abdomen the adrenal glands not enlarged. The skeletal structures reveal disc degeneration in the dorsal spine. At the thoracic inlet the thyroid gland appears normal. IMPRESSION: No evidence of pulmonary embolus, vascular, or aortic dissection. Stable right upper lobe neoplasm with measurements along with metastatic nodules in both lungs. Bilateral small pleural effusions which have enlarged since the previous study. Generalized emphysematous changes. Transcribed By: RB Dictated By: ANNELISE GERONIMO MD Electronically Authenticated By: ANNELISE GERONIMO MD Signed Date/Time: 10/31/17 011 - Medical Decision Making Patient is a 59-year-old female that presents emergency room for shortness of breath 2 days. Patient found to have a COPD exacerbation and a CHF exacerbation. Patient to be admitted to the hospitalist service for further violation treatment. - Differential Diagnosis sob. acs. copd ex. chf ex. hypoxia. pe Critical Care Time: Yes Critical care attestation.: If time is entered above; I have spent that time in minutes in the direct care of this critically ill patient, excluding procedure time. Critical Care Time: 35 minutes for cc time ED Disposition Clinical Impression: COPD with acute exacerbation, Hypoxia Lung cancer Qualifiers: Laterality: unspecified laterality Lung location: unspecified part of lung Qualified Code(s): C34.90 - Malignant neoplasm of unspecified part of unspecified bronchus or lung CHF exacerbation Qualifiers: Heart failure type: unspecified Qualified Code(s): I50.9 - Heart failure, unspecified Anemia Qualifiers: Anemia type: unspecified type Qualified Code(s): D64.9 - Anemia, unspecified Disposition: DC09 OP ADMIT IP TO THIS HOSP Is pt being admited?: Yes Does the pt Need Aspirin: No Condition: Critical Time of Disposition: 02:05
--- NOTE | 2017-10-30 22:35 | XRay Report ---
FINAL REPORT PROCEDURE: XR CHEST 1V AP TECHNIQUE: Chest radiograph anteroposterior view. HISTORY: Shortness of breath. COMPARISON: Chest radiograph dated 10/18/2017. FINDINGS: Heart: Normal. Mediastinum/Vessels: Aortic tortuosity. Lungs/Pleural space: Hyperinflation. Improvement in right lower lobe opacity and pleural effusion. Slight worsening of left lower lobe opacity. Stable 4.5 cm right upper lobe mass. Bony thorax: Mild degenerative changes of the spine. Life support devices: Tip of the central venous catheter the cavoatrial junction/proximal right atrium. IMPRESSION: Aortic tortuosity. Hyperinflation suggests obstructive physiology. Improving right lower lobe opacity and effusion, with slight worsening of left lower lobe opacity. Stable 4.5 cm right upper lobe mass, concerning for malignancy. Tip of central venous catheter the cavoatrial junction/proximal right atrium.
[2017-10-30 22:52] LABS: Mean Corpuscular HGB Conc 27 % (30-34); Mean Corpuscular Volume 91 fl (79-97); Platelet Count 335 K/mm3 (140-440); Red Blood Count 3.98 M/mm3 (3.65-5.03)
[2017-10-30 23:04] LABS: BUN/Creatinine Ratio 40; Blood Urea Nitrogen 16 mg/dL (7-17); Calcium 8.9 mg/dL (8.4-10.2); Hemolysis Index 68
[2017-10-30 23:05] LABS: Hemoglobin 9.8 gm/dl (10.1-14.3)
[2017-10-30 23:06] LABS: Hematocrit 36.3 % (30.3-42.9); Mean Corpuscular Hemoglobin 25 pg (28-32); Red Cell Distribution Width 26.7 % (13.2-15.2)
[2017-10-30] MEDS ORDERED: MORPHINE IV ONE (23:38)
[2017-10-30 23:43] LABS: RBC Morphology Normal; Total Cells Counted 100
--- NOTE | 2017-10-31 01:16 | Cat Scan Report ---
FINAL REPORT EXAM: CT ANGIO CHEST HISTORY: sob. eelevated d-dimer TECHNIQUE: A CT angiogram was performed following the intravenous injection of 100 cc of Omnipaque 350. MIP sagittal and coronal reconstructions were reviewed. Comparison is made study of 10/25/2017. FINDINGS: There is no evidence of pulmonary embolus or aortic dissection since the previous study. The heart is mildly enlarged. There is a stable small pericardial effusion. Once again there is an exophytic mass in the right upper lobe measuring 4.9 cm x 4 cm x 4 cm compatible malignancy. There is stable scattered nodules in both lungs compatible with metastatic nodules. There is a small right-sided effusion which is increased in size since the previous study. There is now a small left-sided effusion. The lungs are not congested. In the upper abdomen the adrenal glands not enlarged. The skeletal structures reveal disc degeneration in the dorsal spine. At the thoracic inlet the thyroid gland appears normal. IMPRESSION: No evidence of pulmonary embolus, vascular, or aortic dissection. Stable right upper lobe neoplasm with measurements along with metastatic nodules in both lungs. Bilateral small pleural effusions which have enlarged since the previous study. Generalized emphysematous changes.
[2017-10-31] MEDS ORDERED: SODIUM CHLORIDE FLUSH SYRINGE 10 ML IV PRN (05:28)
[2017-10-31] MEDS ORDERED: ZOFRAN IV PRN (05:28)
[2017-10-31] MEDS ORDERED: TYLENOL PO PRN (05:28)
[2017-10-31] MEDS ORDERED: PROVENTIL IH PRN (06:05)
[2017-10-31] MEDS ORDERED: ROCEPHIN/NS 1 GM/50 ML 1 GM/50 ML BAG IV SCH (06:07)
[2017-10-31] MEDS: ROCEPHIN/NS 1 GM/50 ML 1 GM/50 ML BAG IV SCH (06:12)
--- NOTE | 2017-10-31 06:16 | History and Physical Report ---
History of Present Illness Date of examination: 10/31/17 Date of admission: 10/31/17 03:07 History of present illness: 61 -year-old woman with a history of COPD, hypertension, lung cancer, CHF comes emergency room with complaint of shortness of breath, PND, orthopnea and lower extremity edema Review of systems Constitutional: no weight loss, chills, fever Ears, eyes, nose, mouth and throat: no nasal congestion, no nasal discharge, no sinus pressure, no vision change, no red eye. Neck: No neck pain or rigidity. Cardiovascular: no chest pain, palpitations Respiratory: no cough, +shortness of breath Gastrointestinal: no abdominal pain hematochezia Genitourinary : no frequency , no hematuria Musculoskeletal: no joint swelling or muscle ache Integumentary: no rash, no pruritis Neurological: no parathesias, no numbness, no focal weakness Endocrine: no cold or heat intolerance, no polyuria or polydipsia Hematologic/Lymphatic: no easy bruising, no easy bleeding, no gland swelling Allergic/Immunologic: no urticaria, no angioedema. PAST MEDICAL HISTORY: COPD, hypertension, lung cancer, CHF PAST SURGICAL HISTORY: port SOCIAL HISTORY: No alcohol, no drugs, tobacco FAMILY HISTORY: Hypertension Medications and Allergies Allergies Allergy/AdvReac Type Severity Reaction Status Date / Time No Known Allergies Allergy Verified 10/18/17 21:48 Home Medications Medication Instructions Recorded Confirmed Last Taken Type ALBUTEROL NEB's [Proventil 0.083% 2.5 mg IH Q4HRT PRN #30 nebu 10/22/17 Unknown Rx NEBS] Aspirin [Aspirin BABY CHEW TAB] 81 mg PO QDAY #30 tab.chew 10/22/17 10/25/17 Unknown Rx AtorvaSTATin [Lipitor] 40 mg PO QHS #30 tablet 10/22/17 10/25/17 Unknown Rx Furosemide [Lasix TAB] 20 mg PO QDAY #30 tablet 10/22/17 10/25/17 Unknown Rx Levofloxacin [Levaquin TAB] 750 mg PO DAILY #4 tablet 10/22/17 10/25/17 Unknown Rx Metoprolol [Lopressor TAB] 25 mg PO BID #60 tablet 10/22/17 10/25/17 Unknown Rx Potassium Chloride [K-Dur] 5 meq PO QDAY #14 tablet 10/22/17 10/25/17 Unknown Rx oxyCODONE /ACETAMINOPHEN [Percocet 2 tab PO Q6H PRN #30 tablet 10/22/17 Unknown Rx 5/325 mg] Active Meds: Active Medications Acetaminophen (Tylenol) 650 mg PO Q4H PRN PRN Reason: Pain MILD(1-3)/Fever >100.5/OLMOS Albuterol (Proventil) 2.5 mg IH Q4HRT PRN PRN Reason: Shortness Of Breath Aspirin (Baby Aspirin) 81 mg PO QDAY DONALD Atorvastatin Calcium (Lipitor) 40 mg PO QHS DONALD Furosemide (Lasix) 20 mg IV BID@0600,1800 DONALD Ceftriaxone Sodium (Rocephin/Ns 1 Gm/50 Ml) 1 gm in 50 mls @ 100 mls/hr IV DAILY DONALD; Protocol Ceftriaxone Sodium (Rocephin/Ns 1 Gm/50 Ml) 1 gm in 50 mls @ 100 mls/hr IV Q24HR DONALD; Protocol Lisinopril (Zestril) 2.5 mg PO QDAY DONALD Ondansetron HCl (Zofran) 4 mg IV Q8H PRN PRN Reason: Nausea And Vomiting Sodium Chloride (Sodium Chloride Flush Syringe 10 Ml) 10 ml IV BID DONALD Sodium Chloride (Sodium Chloride Flush Syringe 10 Ml) 10 ml IV PRN PRN PRN Reason: LINE FLUSH Exam - Physical Exam Narrative exam: Gen. appearance: Patient lying in bed, no apparent distress HEENT: Normocephalic, atraumatic, pupils equally round and reactive to light, extraocular movement intact, and no sclericterus,. No JVD or thyromegaly or nodule,neck supple, no carotid bruit ,mucous membranes moist, no exudate or erythema Heart: S1, S2, regular rate and rhythm Lungs: Decreased breath sound at bases,, breathing comfortable Abdomen: Positive bowel sounds, non-tender, nondistended, no organomegaly Extremity:+ edema, no cyanosis, clubbing Skin: no rash, dry, warm Neuro: Oriented 3, cranial nerves II-12 intact, speech is fluent, motor and sensory intact - Constitutional Vitals: Temp Pulse Resp BP Pulse Ox 98.9 F 110 H 25 H 131/77 100 10/30/17 21:55 10/31/17 04:15 10/31/17 04:15 10/31/17 04:15 10/31/17 04:15 Results - Labs CBC & Chem 7: 10/30/17 22:25 10/30/17 22:25 Labs: Abnormal lab results 10/30/17 10/30/17 10/30/17 Range/Units 22:25 22:25 22:25 WBC 13.2 H (4.5-11.0) K/mm3 Hgb 9.8 L (10.1-14.3) gm/dl MCH 25 L (28-32) pg MCHC 27 L (30-34) % RDW 26.7 H (13.2-15.2) % Seg Neuts % (Manual) 74.0 H (40.0-70.0) % Lymphocytes % (Manual) 13.0 L (13.4-35.0) % Monocytes % (Manual) 11.0 H (0.0-7.3) % Seg Neutrophils # Man 9.8 H (1.8-7.7) K/mm3 Monocytes # (Manual) 1.5 H (0.0-0.8) K/mm3 D-Dimer (0-234) ng/mlDDU Carbon Dioxide 37 H (22-30) mmol/L Creatinine 0.4 L (0.7-1.2) mg/dL Lactic Acid (0.7-2.0) mmol/L NT-Pro-B Natriuret Pep 2839 H (0-900) pg/mL 10/30/17 10/30/17 10/31/17 Range/Units 23:16 23:21 02:07 WBC (4.5-11.0) K/mm3 Hgb (10.1-14.3) gm/dl MCH (28-32) pg MCHC (30-34) % RDW (13.2-15.2) % Seg Neuts % (Manual) (40.0-70.0) % Lymphocytes % (Manual) (13.4-35.0) % Monocytes % (Manual) (0.0-7.3) % Seg Neutrophils # Man (1.8-7.7) K/mm3 Monocytes # (Manual) (0.0-0.8) K/mm3 D-Dimer 552.91 H (0-234) ng/mlDDU Carbon Dioxide (22-30) mmol/L Creatinine (0.7-1.2) mg/dL Lactic Acid 2.10 H* 3.00 H* (0.7-2.0) mmol/L NT-Pro-B Natriuret Pep (0-900) pg/mL 10/31/17 Range/Units 03:35 WBC (4.5-11.0) K/mm3 Hgb (10.1-14.3) gm/dl MCH (28-32) pg MCHC (30-34) % RDW (13.2-15.2) % Seg Neuts % (Manual) (40.0-70.0) % Lymphocytes % (Manual) (13.4-35.0) % Monocytes % (Manual) (0.0-7.3) % Seg Neutrophils # Man (1.8-7.7) K/mm3 Monocytes # (Manual) (0.0-0.8) K/mm3 D-Dimer (0-234) ng/mlDDU Carbon Dioxide (22-30) mmol/L Creatinine (0.7-1.2) mg/dL Lactic Acid 3.20 H* (0.7-2.0) mmol/L NT-Pro-B Natriuret Pep (0-900) pg/mL - Imaging and Cardiology Chest x-ray: report reviewed CT scan - chest: report reviewed Assessment and Plan Assessment Acute CHF exacerbation, probably systolic COPD, stable Hypertension lung cancer Plan Admit to medicine Diuresis and IV Lasix, aspirin Hold beta tae, ANGELY inhibitor, blood pressure will not tolerate, Check cardiac enzymes, echo, consult cardiology Continue Proventil patient's medication Elevated lactate, start empiric antibiotics, pending culture DVT prophylaxis
[2017-10-31] MEDS: LASIX IV SCH ×2 (06:18→18:33)
[2017-10-31 07:00] LABS: BUN/Creatinine Ratio 30; Blood Urea Nitrogen 15 mg/dL (7-17); Calcium 8.8 mg/dL (8.4-10.2); Hemolysis Index 4
[2017-10-31 08:15] LABS: Mean Corpuscular HGB Conc 29 % (30-34); Mean Corpuscular Volume 86 fl (79-97); Platelet Count 390 K/mm3 (140-440); Red Blood Count 3.81 M/mm3 (3.65-5.03)
[2017-10-31 08:35] LABS: Hematocrit 32.8 % (30.3-42.9); Hemoglobin 9.5 gm/dl (10.1-14.3); Mean Corpuscular Hemoglobin 25 pg (28-32); Red Cell Distribution Width 26.9 % (13.2-15.2)
[2017-10-31 09:34] LABS: Band Neutrophils # (Manual) 0.4 K/mm3; Basophils % (Manual) 0 % (0.0-1.8); Eosinophils % (Manual) 0 % (0.0-4.3); Total Cells Counted 100
[2017-10-31 09:35] LABS: Anisocytosis 2+; Hypochromasia 2+; Target Cells Few
[2017-10-31 09:36] LABS: Poikilocytosis Few
--- NOTE | 2017-10-31 09:47 | Progress Note ---
Assessment and Plan Assessment Acute on Chronic Systolic HF with EF 40-45% as at 10/20/17 c COPD, stable Hypertension lactic acidosis lung cancer Plan SIRS of no infective source Diuresis and IV Lasix, aspirin, strict Is and Os. Hold beta tae, ANGELY inhibitor, blood pressure will not tolerate, Check cardiac enzymes, consult cardiology Continue Bronchodilators Elevated lactate, start empiric antibiotics, pending culture DVT prophylaxis with lovenox Subjective Date of service: 10/31/17 Principal diagnosis: COPD exercebation, Interval history: still having shortness of breath Objective - Constitutional Vitals: Vital Signs - 12hr 10/30/17 10/30/17 10/30/17 21:55 22:30 23:38 Temperature 98.9 F Pulse Rate 115 H 102 H Respiratory 22 16 16 Rate Blood Pressure 128/75 115/68 Blood Pressure 128/75 [Left] O2 Sat by Pulse 93 94 Oximetry 10/31/17 10/31/17 10/31/17 00:08 00:15 02:15 Temperature Pulse Rate 102 H 104 H Respiratory 18 21 18 Rate Blood Pressure 128/73 Blood Pressure [Left] O2 Sat by Pulse 99 93 Oximetry 10/31/17 10/31/17 10/31/17 04:15 04:30 04:41 Temperature Pulse Rate 110 H 99 H 94 H Respiratory 25 H 25 H 23 Rate Blood Pressure 131/77 124/74 124/74 Blood Pressure [Left] O2 Sat by Pulse 100 99 99 Oximetry 10/31/17 10/31/17 10/31/17 04:51 05:00 05:11 Temperature Pulse Rate 97 H 95 H 97 H Respiratory 22 23 23 Rate Blood Pressure 124/74 129/68 129/68 Blood Pressure [Left] O2 Sat by Pulse 98 98 99 Oximetry 10/31/17 08:32 Temperature Pulse Rate Respiratory Rate Blood Pressure Blood Pressure [Left] O2 Sat by Pulse 97 Oximetry General appearance: Present: no acute distress, well-nourished - EENT Eyes: PERRL, EOM intact Ears: bilateral: normal - Neck Neck: supple, normal ROM - Respiratory Respiratory effort: normal Respiratory: bilateral: CTA - Cardiovascular Rhythm: regular Heart Sounds: Present: S1 & S2. Absent: gallop, rub Extremities: pulses intact, No edema, normal color, Full ROM - Gastrointestinal General gastrointestinal: Present: soft, non-tender, non-distended, normal bowel sounds - Integumentary Integumentary: clear, warm, dry - Musculoskeletal Musculoskeletal: 1, strength equal bilaterally - Neurologic Neurologic: moves all extremities - Psychiatric Psychiatric: memory intact, appropriate mood/affect, intact judgment & insight - Labs CBC & Chem 7: 10/31/17 06:00 10/31/17 06:00 Labs: Abnormal lab results 10/30/17 10/30/17 10/30/17 Range/Units 22:25 22:25 22:25 WBC 13.2 H (4.5-11.0) K/mm3 Hgb 9.8 L (10.1-14.3) gm/dl MCH 25 L (28-32) pg MCHC 27 L (30-34) % RDW 26.7 H (13.2-15.2) % Seg Neuts % (Manual) 74.0 H (40.0-70.0) % Lymphocytes % (Manual) 13.0 L (13.4-35.0) % Monocytes % (Manual) 11.0 H (0.0-7.3) % Seg Neutrophils # Man 9.8 H (1.8-7.7) K/mm3 Lymphocytes # (Manual) (1.2-5.4) K/mm3 Monocytes # (Manual) 1.5 H (0.0-0.8) K/mm3 D-Dimer (0-234) ng/mlDDU Sodium (137-145) mmol/L Chloride (98-107) mmol/L Carbon Dioxide 37 H (22-30) mmol/L Creatinine 0.4 L (0.7-1.2) mg/dL Glucose (65-100) mg/dL Lactic Acid (0.7-2.0) mmol/L NT-Pro-B Natriuret Pep 2839 H (0-900) pg/mL 10/30/17 10/30/17 10/31/17 Range/Units 23:16 23:21 02:07 WBC (4.5-11.0) K/mm3 Hgb (10.1-14.3) gm/dl MCH (28-32) pg MCHC (30-34) % RDW (13.2-15.2) % Seg Neuts % (Manual) (40.0-70.0) % Lymphocytes % (Manual) (13.4-35.0) % Monocytes % (Manual) (0.0-7.3) % Seg Neutrophils # Man (1.8-7.7) K/mm3 Lymphocytes # (Manual) (1.2-5.4) K/mm3 Monocytes # (Manual) (0.0-0.8) K/mm3 D-Dimer 552.91 H (0-234) ng/mlDDU Sodium (137-145) mmol/L Chloride (98-107) mmol/L Carbon Dioxide (22-30) mmol/L Creatinine (0.7-1.2) mg/dL Glucose (65-100) mg/dL Lactic Acid 2.10 H* 3.00 H* (0.7-2.0) mmol/L NT-Pro-B Natriuret Pep (0-900) pg/mL 10/31/17 10/31/17 10/31/17 Range/Units 03:35 06:00 06:00 WBC (4.5-11.0) K/mm3 Hgb 9.5 L (10.1-14.3) gm/dl MCH 25 L (28-32) pg MCHC 29 L (30-34) % RDW 26.9 H (13.2-15.2) % Seg Neuts % (Manual) 87.0 H (40.0-70.0) % Lymphocytes % (Manual) 6.0 L (13.4-35.0) % Monocytes % (Manual) (0.0-7.3) % Seg Neutrophils # Man 8.4 H (1.8-7.7) K/mm3 Lymphocytes # (Manual) 0.6 L (1.2-5.4) K/mm3 Monocytes # (Manual) (0.0-0.8) K/mm3 D-Dimer (0-234) ng/mlDDU Sodium 148 H (137-145) mmol/L Chloride 96.0 L (98-107) mmol/L Carbon Dioxide 37 H (22-30) mmol/L Creatinine 0.5 L (0.7-1.2) mg/dL Glucose 259 H (65-100) mg/dL Lactic Acid 3.20 H* (0.7-2.0) mmol/L NT-Pro-B Natriuret Pep (0-900) pg/mL 10/31/17 Range/Units 08:09 WBC (4.5-11.0) K/mm3 Hgb (10.1-14.3) gm/dl MCH (28-32) pg MCHC (30-34) % RDW (13.2-15.2) % Seg Neuts % (Manual) (40.0-70.0) % Lymphocytes % (Manual) (13.4-35.0) % Monocytes % (Manual) (0.0-7.3) % Seg Neutrophils # Man (1.8-7.7) K/mm3 Lymphocytes # (Manual) (1.2-5.4) K/mm3 Monocytes # (Manual) (0.0-0.8) K/mm3 D-Dimer (0-234) ng/mlDDU Sodium (137-145) mmol/L Chloride (98-107) mmol/L Carbon Dioxide (22-30) mmol/L Creatinine (0.7-1.2) mg/dL Glucose (65-100) mg/dL Lactic Acid 3.20 H* (0.7-2.0) mmol/L NT-Pro-B Natriuret Pep (0-900) pg/mL
[2017-10-31] MEDS ORDERED: LOPRESSOR PO SCH (10:00)
[2017-10-31] MEDS ORDERED: ZESTRIL PO SCH (10:00)
[2017-10-31] MEDS: BABY ASPIRIN PO SCH (10:17)
[2017-10-31] MEDS: NORCO 5/325 PO PRN ×2 (10:17→22:09)
[2017-10-31] MEDS: SODIUM CHLORIDE FLUSH SYRINGE 10 ML IV SCH ×2 (10:18→22:10)
[2017-10-31 10:31] LABS: Creatine Kinase MB 2.3 ng/mL (0.0-4.0)
--- NOTE | 2017-10-31 12:58 | Event Note ---
Date: 10/31/17 [facility] consult dictated. .
[2017-10-31 19:46] LABS: Bilirubin,Urine NEG (Negative); Blood,Urine NEG (Negative); Color,Urine Colorless (Yellow); Mucus,Urine FEW /HPF; Protein,Urine <15 mg/dL mg/dL (Negative); RBC,Urine < 1.0 /HPF (0.0-6.0); Urobilinogen,Urine < 2.0 mg/dL (<2.0)
--- NOTE | 2017-10-31 23:28 | Consultation ---
ROOM NUMBER: [id number] CONSULT REQUESTED BY: Hospitalist. REASON FOR CONSULTATION: Possible congestive heart failure. HISTORY OF PRESENT ILLNESS: This is a 61-year-old patient with a history of stage 3 lung cancer diagnosed in 04/2017, who was admitted last month on 10/21/2017 for shortness of breath. She has some insurance problems. Finally, she got it settled with [employer] and Medicare. The patient has an Infusaport implanted in the right arm for chemotherapy. She came in with shortness of breath in spite of using oxygen at home. She had echocardiogram done during last visit, which showed an ejection fraction of 40%-45%, mild LVH and impaired relaxation. RV function was reduced. She was also noted to have elevated right ventricular systolic pressure 65 mmHg and small pericardial effusion. The patient denies any chest pain or palpitations. She does have shortness of breath with minimal exertion. MEDICATIONS: At home include: 1. Albuterol q. 4 hours p.r.n. 2. Aspirin 81 mg. 3. Lipitor 40 mg. 4. Furosemide 20 mg once a day. 5. Levaquin 750 mg once a day, which was given on 10/22/2017 for 4 days. 6. Metoprolol 25 mg b.i.d. 7. Potassium chloride 5 mEq once a day. 8. Oxycodone/acetaminophen, Percocet 5/325 two tablets q. 6 hours p.r.n. ALLERGIES: THE PATIENT HAS NO ALLERGIES. REVIEW OF SYSTEMS: CONSTITUTIONAL: The patient has been thin built. Appetite is good. CARDIOPULMONARY: Has shortness of breath, no dyspnea on exertion. GASTROINTESTINAL: No symptoms. NEUROLOGICAL: No history of TIA or stroke. ENDOCRINE: No history of thyroid disease. HEMATOLOGIC: No history of anemia or easy bruising. PHYSICAL EXAMINATION: GENERAL: The patient is in no acute distress. She is having lunch. VITAL SIGNS: Blood pressure 130/70, pulse 110per minute. Temperature normal. NECK: No JVP elevation. LUNGS: Revealed bibasilar rales. HEART: PMI is fifth intercostal space within MCL. Sinus tachycardia and possible S3 gallop. Because of tachycardia, difficult to hear any murmur. ABDOMEN: Soft, nontender. Liver is not palpable. EXTREMITIES: No edema. Good pulses. LABORATORY DATA: Sodium 143, potassium 4.4, BUN is 37, creatinine 0.4. Hemoglobin is 9.8 grams percent. ProBNP 2839. Normal is up to 900 pg/mL. D-dimer is 552.9 is high and then 234 top normal. This is probably nonspecific. Lactic acid is 3 nmol/L, normal is up to 2. Chest x-ray; history of COPD. No overt signs of failure. ASSESSMENT: 1. Acute exacerbation of heart failure. She has systolic and diastolic heart failure. 2. Chronic obstructive pulmonary disease. 3. History of lung cancer. 4. Pulmonary hypertension and sinus tachycardia, probably due to chronic obstructive pulmonary disease, heart failure, and anemia. PLAN: If blood pressure can tolerate, resume beta blockers. Then, consider ANGELY inhibitors. I do not think she needs a repeat echocardiogram because it was done in the last 10 days. JOB# [id number] JOHN/LI GROVER
[2017-10-31 23:35] LABS: Creatine Kinase MB 2.1 ng/mL (0.0-4.0)
[2017-11-01] MEDS: LASIX IV SCH ×2 (05:40→18:21)
--- NOTE | 2017-11-01 11:04 | Progress Note ---
Assessment and Plan Assessment: Acute combined systolic and diastolic HF Acute respiratory failure Sinus tachycardia Lactic acidosis Lung CA COPD HTN Pulmonary HTN H/o small pericardial effusion without cardiac tamponade Tobacco use Plan: Resume home lopressor for BP and HR optimization. Cont diuresis. The patient has been seen in conjunction with Dr. Marrero who agrees with the assessment and plan of care Subjective Date of service: 11/01/17 Principal diagnosis: COPD exercebation, Interval history: pt resting comfortably in bed, states she is feeling a little better. tele reviewed - pt currently in ST with HR 105, HR as high as 130s noted overnight. Objective Last Vital Signs Temp 97.4 F L 11/01/17 08:17 Pulse 103 H 11/01/17 08:17 Resp 18 11/01/17 08:17 BP 151/80 11/01/17 08:17 Pulse Ox 100 11/01/17 08:17 - Physical Examination General: No Apparent Distress HEENT: Positive: PERRL, Normocephaly, Mucus Membranes Moist Neck: Positive: neck supple, trachea midline Cardiac: Positive: Regular Rhythm, S1/S2 Lungs: Positive: Decreased Breath Sounds Neuro: Positive: Grossly Intact Abdomen: Positive: Soft. Negative: Tender Skin: Positive: Clear. Negative: Rash, Wound Musculoskeletal: No Pain Extremities: Present: edema - Labs and Meds Cardiac Enzymes 10/31/17 Range/Units 06:00 CK-MB (CK-2) 2.1 (0.0-4.0) ng/mL - Imaging and Cardiology Echo: report reviewed (10/20/2017 showed EF 40-45%, mild LVH, impaired relaxation , RV systolic function mildly reduced, trace MR, mod TR, mod pulm HTN with RVSP 65mmHg, small pericardial effusion.) - Telemetry EKG Rhythm: Sinus Tachycardia
[2017-11-01] MEDS: BABY ASPIRIN PO SCH (11:42)
[2017-11-01] MEDS: ROCEPHIN/NS 1 GM/50 ML 1 GM/50 ML BAG IV SCH (11:43)
[2017-11-01] MEDS: SODIUM CHLORIDE FLUSH SYRINGE 10 ML IV SCH ×2 (11:43→22:25)
[2017-11-01] MEDS: NORCO 5/325 PO PRN (19:59)
[2017-11-01] MEDS: LOPRESSOR PO SCH ×2 (20:11→22:19)
--- NOTE | 2017-11-01 21:01 | Progress Note ---
Assessment and Plan Assessment Acute on Chronic Systolic HF with EF 40-45% as at 10/20/17 COPD, stable Hypertension Pulm HTN lactic acidosis lung cancer Tobacco use disorder Plan SIRS of no infective source Continue Diuresis and IV Lasix, aspirin, strict Is and Os. Hold beta tae, ANGELY inhibitor, blood pressure will not tolerate, enzymes normal 2, consult cardiology Continue Bronchodilators Elevated lactate, continue on empiric antibiotics F/U bld culture results DVT prophylaxis with lovenox Subjective Date of service: 11/01/17 Principal diagnosis: COPD exercebation, pulmonary hypertension Interval history: still having shortness of breath and dyspnea on slight exersion Objective - Exam Narrative Exam: Constitutional: Well-nourished well-developed. Finger clubbing Head: Normocephalic atraumatic Eyes: Pupils are equal round and reactive to light Nose: No enlarged turbinates, no septal deviation. Mouth: Moist mucous membranes. Neck: Supple no thyromegaly. No bruit. No JVD Heart: Regular rate and rhythm, S1-S2 abnormal. No rubs murmurs or gallop Lungs: Clear to auscultation bilaterally no rales or rhonchi Abdomen: Soft, nontender. Bowel sound are present. Extremities: No edema no cyanosis and no clubbing. Neuro: Alert oriented Oriented x3. No focal sensory or motor deficit. Skin: No rashes no hyperemic spots Psychiatry: Euthymic. Calm. - Constitutional Vitals: Vital Signs - 12hr 11/01/17 11/01/17 11/01/17 10:00 12:57 19:51 Temperature 98.6 F Pulse Rate 103 H 96 H Respiratory 22 18 Rate Respiratory Rate [ Generalized] Blood Pressure 142/83 O2 Sat by Pulse 100 100 100 Oximetry 11/01/17 11/01/17 19:59 20:07 Temperature Pulse Rate Respiratory 20 Rate Respiratory 20 Rate [ Generalized] Blood Pressure O2 Sat by Pulse Oximetry - Labs CBC & Chem 7: 10/31/17 06:00 10/31/17 06:00
[2017-11-01] MEDS: CLARITIN PO SCH (23:12)
[2017-11-01] MEDS: PROTONIX PO SCH (23:12)
[2017-11-02] MEDS: NORCO 5/325 PO PRN ×2 (05:48→23:11)
[2017-11-02] MEDS: LASIX IV SCH (05:48)
[2017-11-02 07:25] LABS: Mean Corpuscular HGB Conc 29 % (30-34); Mean Corpuscular Volume 86 fl (79-97); Platelet Count 425 K/mm3 (140-440); Red Blood Count 3.41 M/mm3 (3.65-5.03)
[2017-11-02 07:28] LABS: Hematocrit 29.4 % (30.3-42.9); Hemoglobin 8.6 gm/dl (10.1-14.3); Mean Corpuscular Hemoglobin 25 pg (28-32)
[2017-11-02 07:31] LABS: Alanine Aminotransferase 23 units/L (7-56); Albumin 2.8 g/dL (3.9-5); BUN/Creatinine Ratio 32; Blood Urea Nitrogen 16 mg/dL (7-17); Calcium 9.1 mg/dL (8.4-10.2); Hemolysis Index 20
[2017-11-02 08:28] LABS: Basophils % (Manual) 0 % (0.0-1.8); Total Cells Counted 100
[2017-11-02 08:29] LABS: Anisocytosis 2+; Hypochromasia 2+; Platelet Estimate Consistent w Auto; Schistocytes Rare; Target Cells Rare
--- NOTE | 2017-11-02 10:50 | Progress Note ---
Assessment and Plan /Acute on Chronic Systolic HF with EF 40-45% as at 10/20/17 - Continue Diuresis and IV Lasix, aspirin, strict Is and Os. Hold beta tae, ANGELY inhibitor, blood pressure will not tolerate, enzymes normal 2, cardiology following /COPD, stable with mild exacerbation Continue Bronchodilators /SIRS of no infective source and lactic acidosis Elevated lactate, continue on empiric antibiotics F/U bld culture results /Acute on chronic hypoxic respiratory failure on home O2, will cont nebs, diuresis and N/c o2 /Hypertension, stable /Pulm HTN, likely from underlying lung malignancy /lung cancer stage 3 has outpt follow up /Tobacco use disorder, states that she quit Ohysical exam; Constitutional: elderly malnurished AAF. Finger clubbing Head: Normocephalic atraumatic Eyes: Pupils are equal round and reactive to light Nose: No enlarged turbinates, no septal deviation. Mouth: Moist mucous membranes. Neck: Supple no thyromegaly. No bruit. No JVD Heart: Regular rate and rhythm, S1-S2 abnormal. No rubs murmurs or gallop Lungs: Clear to auscultation bilaterally no rales or rhonchi with diminished BS Abdomen: Soft, nontender. Bowel sound are present. Extremities: No edema no cyanosis and no clubbing. Neuro: Alert oriented Oriented x3. No focal sensory or motor deficit. Skin: No rashes no hyperemic spots Psychiatry: Euthymic. Calm. Subjective Date of service: 11/02/17 Principal diagnosis: COPD exercebation, Interval history: Pt seen and examined c/o SOB but improved improved leg swelling Updated and pt at the bedside Objective - Constitutional Vitals: Vital Signs - 12hr 11/02/17 11/02/17 05:48 06:48 Respiratory 20 20 Rate - Labs CBC & Chem 7: 11/03/17 06:21 11/03/17 06:21 Labs: Abnormal lab results 11/02/17 11/02/17 Range/Units 05:52 05:52 WBC 11.1 H (4.5-11.0) K/mm3 RBC 3.41 L (3.65-5.03) M/mm3 Hgb 8.6 L (10.1-14.3) gm/dl Hct 29.4 L (30.3-42.9) % MCH 25 L (28-32) pg MCHC 29 L (30-34) % RDW 27.0 H (13.2-15.2) % Seg Neuts % (Manual) 79.0 H (40.0-70.0) % Lymphocytes % (Manual) 10.0 L (13.4-35.0) % Monocytes % (Manual) 9.0 H (0.0-7.3) % Seg Neutrophils # Man 8.8 H (1.8-7.7) K/mm3 Lymphocytes # (Manual) 1.1 L (1.2-5.4) K/mm3 Monocytes # (Manual) 1.0 H (0.0-0.8) K/mm3 Chloride 95.4 L (98-107) mmol/L Carbon Dioxide 42 H* (22-30) mmol/L Creatinine 0.5 L (0.7-1.2) mg/dL Total Protein 5.4 L (6.3-8.2) g/dL Albumin 2.8 L (3.9-5) g/dL
[2017-11-02] MEDS: CLARITIN PO SCH (11:26)
[2017-11-02] MEDS: BABY ASPIRIN PO SCH (11:26)
[2017-11-02] MEDS: PROTONIX PO SCH (11:26)
[2017-11-02] MEDS: ROCEPHIN/NS 1 GM/50 ML 1 GM/50 ML BAG IV SCH (11:26)
[2017-11-02] MEDS: LOPRESSOR PO SCH ×2 (11:27→23:11)
--- NOTE | 2017-11-02 11:30 | Progress Note ---
Assessment and Plan Assessment: Acute combined systolic and diastolic HF - nearing euvolemia Acute respiratory failure - improving Sinus tachycardia - improving Lactic acidosis Lung CA COPD HTN Pulmonary HTN H/o small pericardial effusion without cardiac tamponade Tobacco use Plan: Cont lopressor. Consider titration if BPs permit. Convert IV lasix to PO lasix 40mg daily from tomorrow AM. The patient has been seen in conjunction with Dr. Marrero who agrees with the assessment and plan of care Subjective Date of service: 11/02/17 Principal diagnosis: COPD exercebation, Interval history: pt resting comfortably in bed, no current complaints, states she wants to be discharged home. tele reviewed - pt currently in SR with HR 90s, bouts of ST noted yesterday evening. Objective Last Vital Signs Temp 97.9 F 11/01/17 19:41 Pulse 106 H 11/01/17 22:19 Resp 20 11/02/17 06:48 BP 151/85 11/01/17 22:19 Pulse Ox 97 11/01/17 21:05 - Physical Examination General: No Apparent Distress HEENT: Positive: PERRL, Normocephaly, Mucus Membranes Moist Neck: Positive: neck supple, trachea midline Cardiac: Positive: Reg Rate and Rhythm, S1/S2 Lungs: Positive: Decreased Breath Sounds Neuro: Positive: Grossly Intact Abdomen: Positive: Soft. Negative: Tender Skin: Positive: Clear. Negative: Rash, Wound Musculoskeletal: No Pain Extremities: Present: edema - Labs and Meds Cardiac Enzymes 11/02/17 Range/Units 05:52 AST 28 (5-40) units/L CBC 11/02/17 Range/Units 05:52 WBC 11.1 H (4.5-11.0) K/mm3 RBC 3.41 L (3.65-5.03) M/mm3 Hgb 8.6 L (10.1-14.3) gm/dl Hct 29.4 L (30.3-42.9) % Plt Count 425 (140-440) K/mm3 Comprehensive Metabolic Panel 11/02/17 Range/Units 05:52 Sodium 144 (137-145) mmol/L Potassium 4.0 (3.6-5.0) mmol/L Chloride 95.4 L (98-107) mmol/L Carbon Dioxide 42 H* (22-30) mmol/L BUN 16 (7-17) mg/dL Creatinine 0.5 L (0.7-1.2) mg/dL Glucose 84 (65-100) mg/dL Calcium 9.1 (8.4-10.2) mg/dL AST 28 (5-40) units/L ALT 23 (7-56) units/L Alkaline Phosphatase 64 (35-129) units/L Total Protein 5.4 L (6.3-8.2) g/dL Albumin 2.8 L (3.9-5) g/dL - Imaging and Cardiology Echo: report reviewed (10/20/2017 showed EF 40-45%, mild LVH, impaired relaxation , RV systolic function mildly reduced, trace MR, mod TR, mod pulm HTN with RVSP 65mmHg, small pericardial effusion.)
[2017-11-02] MEDS: SODIUM CHLORIDE FLUSH SYRINGE 10 ML IV SCH ×2 (19:36→23:13)
[2017-11-02] MEDS: FLONASE NS SCH (23:13)
[2017-11-03 07:42] LABS: Hematocrit 27.6 % (30.3-42.9); Hemoglobin 8.4 gm/dl (10.1-14.3); Mean Corpuscular HGB Conc 30 % (30-34); Mean Corpuscular Volume 85 fl (79-97); Platelet Count 394 K/mm3 (140-440); Red Blood Count 3.24 M/mm3 (3.65-5.03)
[2017-11-03 07:43] LABS: Mean Corpuscular Hemoglobin 26 pg (28-32); Red Cell Distribution Width 27.2 % (13.2-15.2)
[2017-11-03 07:54] LABS: Alanine Aminotransferase 18 units/L (7-56); Albumin 2.6 g/dL (3.9-5); BUN/Creatinine Ratio 45; Blood Urea Nitrogen 18 mg/dL (7-17); Calcium 8.6 mg/dL (8.4-10.2); Hemolysis Index 7
[2017-11-03 09:48] LABS: Anisocytosis 3+; Basophils % (Manual) 0 % (0.0-1.8); Hypochromasia 1+; Schistocytes Rare; Target Cells Rare; Total Cells Counted 100
[2017-11-03 09:49] LABS: Platelet Estimate Consistent w Auto
[2017-11-03] MEDS ORDERED: LASIX PO SCH (10:00)
[2017-11-03] MEDS: PROTONIX PO SCH (11:00)
[2017-11-03] MEDS: CLARITIN PO SCH (11:00)
[2017-11-03] MEDS: BABY ASPIRIN PO SCH (11:00)
[2017-11-03] MEDS: LOPRESSOR PO SCH (11:00)
[2017-11-03] MEDS: SODIUM CHLORIDE FLUSH SYRINGE 10 ML IV SCH (11:12)
[2017-11-03 11:13] VITALS: BP 109/71
--- NOTE | 2017-11-03 11:19 | Progress Note ---
Assessment and Plan Assessment: Acute combined systolic and diastolic HF - nearing euvolemia Acute respiratory failure - improving Sinus tachycardia - improving Lactic acidosis Lung CA COPD HTN Pulmonary HTN H/o small pericardial effusion without cardiac tamponade Tobacco use Plan: Currently stable cardiac status. Pt may discharge home from cardiology standpoint on current regimen. Recommend pt follow up with [facility] within 3-5 days of hospital discharge. Pt verbalizes understanding. The patient has been seen in conjunction with Dr. Sophia Adamson who agrees with the assessment and plan of care Subjective Date of service: 11/03/17 Principal diagnosis: COPD exercebation, Interval history: pt resting comfortably in bed, no current complaints, states she wants to be discharged home. tele reviewed - pt currently in SR with HR 90s. Objective Last Vital Signs Temp 97.9 F 11/02/17 16:42 Pulse 99 H 11/03/17 11:00 Resp 20 11/03/17 00:11 BP 109/71 11/03/17 11:00 Pulse Ox 100 11/03/17 09:09 - Physical Examination General: No Apparent Distress HEENT: Positive: PERRL, Normocephaly, Mucus Membranes Moist Neck: Positive: neck supple, trachea midline Cardiac: Positive: Reg Rate and Rhythm, S1/S2 Lungs: Positive: Decreased Breath Sounds Neuro: Positive: Grossly Intact Abdomen: Positive: Soft. Negative: Tender Skin: Positive: Clear. Negative: Rash, Wound Musculoskeletal: No Pain Extremities: Present: edema - Labs and Meds Cardiac Enzymes 11/03/17 Range/Units 06:21 AST 21 (5-40) units/L CBC 11/03/17 Range/Units 06:21 WBC 11.0 (4.5-11.0) K/mm3 RBC 3.24 L (3.65-5.03) M/mm3 Hgb 8.4 L (10.1-14.3) gm/dl Hct 27.6 L (30.3-42.9) % Plt Count 394 (140-440) K/mm3 Comprehensive Metabolic Panel 11/03/17 Range/Units 06:21 Sodium 143 (137-145) mmol/L Potassium 4.2 (3.6-5.0) mmol/L Chloride 98.0 (98-107) mmol/L Carbon Dioxide 38 H (22-30) mmol/L BUN 18 H (7-17) mg/dL Creatinine 0.4 L (0.7-1.2) mg/dL Glucose 79 (65-100) mg/dL Calcium 8.6 (8.4-10.2) mg/dL AST 21 (5-40) units/L ALT 18 (7-56) units/L Alkaline Phosphatase 60 (35-129) units/L Total Protein 5.1 L (6.3-8.2) g/dL Albumin 2.6 L (3.9-5) g/dL - Imaging and Cardiology Echo: report reviewed (10/20/2017 showed EF 40-45%, mild LVH, impaired relaxation , RV systolic function mildly reduced, trace MR, mod TR, mod pulm HTN with RVSP 65mmHg, small pericardial effusion.)
--- NOTE | 2017-11-03 12:40 | Discharge Summary ---
Providers - Providers Date of Admission: 10/31/17 03:07 Date of discharge: 11/03/17 Attending physician: PAULINO GRIJALVA 10/31/17 05:28 Consult to Physician [CONS] Routine Comment: Consulting Provider: WESLEY JAY Physician Instructions: Reason For Exam: chf Primary care physician: [employer] Hospitalization Reason for admission: SOB Condition: Stable Pertinent studies: CTA chest: No evidence of pulmonary embolus, vascular, or aortic dissection. Stable right upper lobe neoplasm with measurements along with metastatic nodules in both lungs. Bilateral small pleural effusions which have enlarged since the previous study. CXR: Aortic tortuosity. Hyperinflation suggests obstructive physiology. Improving right lower lobe opacity and effusion, with slight worsening of left lower lobe opacity. Stable 4.5 cm right upper lobe mass, concerning for malignancy. Hospital course: 61 -year-old woman with a history of COPD, hypertension, lung cancer, CHF comes emergency room with complaint of shortness of breath, PND, orthopnea and lower extremity edema. She was admitted with CHF exacerbation protocol and cardiology was consulted. she was placed on diuretics and BB was added. She was clinically improved. she was then discharged home in stable condition. Discharge diagnosis and management: /Acute on Chronic Systolic HF with EF 40-45% as at 10/20/17 - Continue Diuresis with Lasix, aspirin, strict Is and Os. Held beta tae, ANGELY inhibitor initially as blood pressure will not tolerate, then BB initiated enzymes normal 2, cardiology following /COPD, stable with mild exacerbation managed with Bronchodilators, supplemental o2 /SIRS of no infective source and lactic acidosis Elevated lactate, continue on empiric antibiotics negative blood culture results /Acute on chronic hypoxic respiratory failure Due to underlying lung cancer, CHF and COPD on home O2, managed with nebs, diuresis and N/c o2 /Hypertension, stable /Pulm HTN, likely from underlying lung malignancy /lung cancer stage 3 has outpt follow up /Tobacco use disorder, states that she quit /Moderate to Severe POM, POA likely from underlying malignancy dietary education provided Ohysical exam; Constitutional: elderly malnurished AAF. Finger clubbing Head: Normocephalic atraumatic Eyes: Pupils are equal round and reactive to light Nose: No enlarged turbinates, no septal deviation. Mouth: Moist mucous membranes. Neck: Supple no thyromegaly. No bruit. No JVD Heart: Regular rate and rhythm, S1-S2 abnormal. No rubs murmurs or gallop Lungs: Clear to auscultation bilaterally no rales or rhonchi with diminished BS Abdomen: Soft, nontender. Bowel sound are present. Extremities: No edema no cyanosis and no clubbing. Neuro: Alert oriented Oriented x3. No focal sensory or motor deficit. Skin: No rashes no hyperemic spots Psychiatry: Euthymic. Calm. Disposition: [id number] HOME UNDER [facility] Time spent for discharge: 34 minutes Core Measure Documentation - Palliative Care Palliative Care/ Comfort Measures: Not Applicable - Core Measures Any of the following diagnoses?: history only Exam - Constitutional Vitals: Temp Pulse Resp BP Pulse Ox 97.9 F 99 H 20 109/71 100 11/02/17 16:42 11/03/17 11:00 11/03/17 00:11 11/03/17 11:00 11/03/17 09:09 Plan Activity: advance as tolerated Weight Bearing Status: Non-Weight Bearing Diet: low fat Special Instructions: restrict fluid intake to (1.5 L daily), record daily weights, smoking cessation, home oxygen via (N/C) Additional Instructions: f/u at cardiology office in one week. F/u with oncology in one week Follow up with: PRIMARY CARE, [Primary Care Provider] - 7 Days Prescriptions: AtorvaSTATin [Lipitor] 40 mg PO QHS #30 tablet ALBUTEROL NEB's [Proventil 0.083% NEBS] 2.5 mg IH Q4HRT PRN #30 nebu PRN Reason: Shortness Of Breath Aspirin [Aspirin BABY CHEW TAB] 81 mg PO QDAY #30 tab.chew Budesonide/Formoterol Fumarate [Symbicort 160-4.5 Mcg Inhaler] 10.2 gm IH BID 30 Days hfa.aer.ad Furosemide [Lasix TAB] 20 mg PO QDAY #30 tablet Metoprolol [Lopressor TAB] 25 mg PO BID #60 tablet Nicotine [Habitrol] 7 mg TD DAILY #7 patch oxyCODONE /ACETAMINOPHEN [Percocet 5/325 mg] 2 tab PO Q6H PRN #30 tablet PRN Reason: Pain, Moderate (4-6) Potassium Chloride [K-Dur] 5 meq PO QDAY #14 tablet Other Discharge Orders: Nebulizer (Amb) Location: None Selected
[2017-11-03] MEDS: FLONASE NS SCH (13:21)
[2017-11-03] MEDS: ROCEPHIN/NS 1 GM/50 ML 1 GM/50 ML BAG IV SCH (13:21)
== END 2017-11-03 16:48 | disposition home health service (06) | DRG 291 ==
LOC: ED 21:38 → 4A 10-31 03:07
PROVIDERS: ADMIT Internal Medicine; ATTEND Internal Medicine
DX: I11.0 Hypertensive heart disease with heart failure (principal); E43 Unspecified severe protein-calorie malnutrition; J96.20 Acute and chronic respiratory failure, unspecified whether with hypoxia or hypercapnia; J44.1 Chronic obstructive pulmonary disease with (acute) exacerbation; E87.2 Acidosis; R65.10 Systemic inflammatory response syndrome (SIRS) of non-infectious origin without acute organ dysfunction; C34.90 Malignant neoplasm of unspecified part of unspecified bronchus or lung; Z68.1 Body mass index [BMI] 19.9 or less, adult; I77.1 Stricture of artery; I50.43 Acute on chronic combined systolic (congestive) and diastolic (congestive) heart failure; J44.9 Chronic obstructive pulmonary disease, unspecified; F17.210 Nicotine dependence, cigarettes, uncomplicated; I27.20 Pulmonary hypertension, unspecified; D64.9 Anemia, unspecified; I07.1 Rheumatic tricuspid insufficiency; Z79.82 Long term (current) use of aspirin; Z79.899 Other long term (current) drug therapy; Z82.49 Family history of ischemic heart disease and other diseases of the circulatory system; Z99.81 Dependence on supplemental oxygen
CPT/HCPCS: 36415; 71045; 71275; 80048; 80053; 81001; 82140; 82550; 82553; 83735; 83880; 84100; 84484; 85007; 85025; 85379; 87116; 93005; 93010; 94760; 96374; 96375; 99291; 99406; A9270-GY; J0696; J1940; J2270; J2930; Q9967